=== PATIENT | female | born 1955 | race Caucasian/White ===

== ENCOUNTER → 2020-12-22 | Outpatient (CLI) | payer MEDICARE, OTHER ==
[~2020-12-22] MED LIST: CEPH500 PO; HYDACE10B PO; HYDPAM25 PO; MORP15ER PO; Macrobid 100 M100 MG PO; OXYACE5T PO; PARO20 PO; PAXIL40 MG PO; TIZANIDINE HCL4 MG PO; Triamcinolone A15 GM TOP
[2020-12-22 15:54] LABS: Appearance, Urine Clear (Clear); Bilirubin, Urine Neg (Neg); Blood, Urine 2+ (Neg); Color, Urine Yellow (P-Yellow); Glucose Qualitative, Urine Neg (Neg); Ketones, Urine Neg (Neg); Leukocyte Esterase, Urine 2+ (Neg); Nitrite, Urine Neg (Neg); Protein, Urine Neg (Neg); Urobilinogen, Urine NORM (Normal)
[2020-12-22 16:10] LABS: Bacteria Many /hpf; Red Blood Cells, Urine 0-2 /hpf (0-2); Squamous Epithelial Cells Few /hpf (Few); White Blood Cells, Urine 25-50 /hpf (0-5); Yeast/Fungi Urine Many /hpf
== END | disposition home or self-care (01) ==
LOC: LAB 15:00 → LAB SHORT 15:00 → LAB FUT 12-21 06:35
PROVIDERS: Urology
DX: N39.0 Urinary tract infection, site not specified (principal)
CPT/HCPCS: 81001; 87077; 87086; 87186

== ENCOUNTER → 2021-01-30 | Outpatient (CLI) | payer MEDICARE | END | disposition home or self-care (01) | LOC: LAB 13:00 → LAB SHORT 13:00 | DX: N39.0 Urinary tract infection, site not specified (principal) | CPT/HCPCS: 87077; 87086; 87186 ==

== ENCOUNTER 2021-03-27 16:29 | Emergency (ER) | payer MEDICARE ==
[~2021-03-27] VITALS: Ht 160 cm; Wt 54.4 kg
[2021-03-27 17:06] LABS: Source, Urine Clean Catch
[2021-03-27 17:10] LABS: Appearance, Urine Hazy (Clear); Bilirubin, Urine Neg (Neg); Blood, Urine 2+ (Neg); Glucose Qualitative, Urine Neg (Neg); Ketones, Urine Neg (Neg); Leukocyte Esterase, Urine 3+ (Neg); Nitrite, Urine Neg (Neg); Protein, Urine Neg (Neg); Specific Gravity, Urine 1.015 (1.003-1.022); Urobilinogen, Urine NORM (Normal)
[2021-03-27 17:15] LABS: Color, Urine Pale Yellow (P-Yellow)
[2021-03-27 17:16] LABS: White Blood Cells, Urine 50-100 /hpf (0-5)
[2021-03-27 17:17] LABS: Bacteria Many /hpf; Squamous Epithelial Cells Few /hpf (Few); Yeast/Fungi Urine Many /hpf
[2021-03-27] MEDS ORDERED: Macrobid 100 M100 MG PO (18:08)
== END 2021-03-27 18:23 | disposition home or self-care (01) ==
LOC: ER 16:29
PROVIDERS: Physician Assistant
DX: N30.90 Cystitis, unspecified without hematuria (principal); I10 Essential (primary) hypertension; F17.200 Nicotine dependence, unspecified, uncomplicated; Z88.2 Allergy status to sulfonamides; Z79.899 Other long term (current) drug therapy; Z88.8 Allergy status to other drugs, medicaments and biological substances
CPT/HCPCS: 81001; 87086; 99284; A9270

== ENCOUNTER → 2021-05-02 | Outpatient (CLI) | payer MEDICARE | END | disposition home or self-care (01) | LOC: LAB 09:45 → LAB SHORT 09:45 | DX: R30.0 Dysuria (principal) | CPT/HCPCS: 87086 ==

== ENCOUNTER 2021-06-10 06:27 | Day surgery (SDC) | payer MEDICARE ==
[~2021-06-10] VITALS: Ht 160 cm; Wt 55.0 kg
[~2021-06-10 06:27] MED LIST changes: +TIZA4 PO; -TIZANIDINE HCL4 MG PO
[2021-06-10] MEDS ORDERED: TOPROL XL200 MG PO (07:03)
[2021-06-10] MEDS ORDERED: AMLO10 PO (07:03)
--- NOTE | 2021-06-10 13:37 | NUR ---
PT DRESSED, IV DC'D INTACT, DR HALL IN REVIEWING PLAN OF CARE W PT, PT DC'D BY WC BY THIS RN, SISTER DRIVING PT HOME, BAG DRAINING RED/YELLOW, PLACED WAIST STRAP ON PT FOR BAG RETENTION AND SENT SECOND BAG HOME W PT
[2021-07-30] MEDS ORDERED: Norco 10-325 T1 EACH PO (07:29)
== END 2021-06-10 13:41 | disposition home or self-care (01) ==
LOC: MHTC 06:27
DX: N13.1 Hydronephrosis with ureteral stricture, not elsewhere classified (principal); I10 Essential (primary) hypertension; F17.210 Nicotine dependence, cigarettes, uncomplicated
CPT/HCPCS: 50432; 76937; 99152; 99153; C1729; C1769; C1887; J2250; J3010; J7030; J7040; Q9967

== ENCOUNTER 2021-06-30 10:27 | Emergency (ER) | payer MEDICARE ==
[~2021-06-30] VITALS: Ht 157.5 cm; Wt 45.4 kg
[~2021-06-30 10:27] MED LIST changes: +AMLO10 PO; -TIZA4 PO; +TIZANIDINE HCL4 MG PO; +TOPROL XL200 MG PO
[2021-06-30] MEDS ORDERED: RAMELTEON8 MG PO (10:56)
== END 2021-06-30 11:45 | disposition home or self-care (01) ==
LOC: ER 10:27
DX: S00.12XA Contusion of left eyelid and periocular area, initial encounter (principal); I10 Essential (primary) hypertension; F17.200 Nicotine dependence, unspecified, uncomplicated; Z79.899 Other long term (current) drug therapy; Z88.2 Allergy status to sulfonamides; Z88.8 Allergy status to other drugs, medicaments and biological substances; W19.XXXA Unspecified fall, initial encounter
CPT/HCPCS: 70450; 72125; 99283-25

== ENCOUNTER → 2021-10-03 | Outpatient (CLI) | payer MEDICARE ==
[~2021-10-03] MED LIST changes: +Norco 10-325 T1 EACH PO; +RAMELTEON8 MG PO; +TIZA4 PO; -TIZANIDINE HCL4 MG PO
== END | disposition home or self-care (01) ==
LOC: LAB 12:00 → LAB SHORT 12:00
DX: R30.0 Dysuria (principal)
CPT/HCPCS: 87077; 87086; 87147; 87186

== ENCOUNTER → 2021-11-11 | Outpatient (CLI) | payer MEDICARE ==
[2021-11-11 15:10] LABS: Source, Urine Clean Catch
[2021-11-11 16:05] LABS: Appearance, Urine Hazy (Clear); Bilirubin, Urine Neg (Neg); Blood, Urine 4+ (Neg); Glucose Qualitative, Urine Neg (Neg); Ketones, Urine Neg (Neg); Leukocyte Esterase, Urine 3+ (Neg); Nitrite, Urine Pos (Neg); Protein, Urine 1+ (Neg); Urobilinogen, Urine NORM (Normal)
[2021-11-11 16:22] LABS: Color, Urine Pale Yellow (P-Yellow)
[2021-11-11 16:23] LABS: Bacteria Many /hpf; Hyaline Casts 0-2 /lpf (0-2); Squamous Epithelial Cells Many /hpf (Few); White Blood Cells, Urine 25-50 /hpf (0-5)
== END | disposition home or self-care (01) ==
LOC: LAB 15:09 → LAB SHORT 15:09 → LAB FUT 11-09 08:50
PROVIDERS: Urology
DX: N39.0 Urinary tract infection, site not specified (principal)
CPT/HCPCS: 81001; 87077; 87086; 87186

== ENCOUNTER 2022-10-06 23:28 | Emergency (ER) | payer MEDICARE ==
[~2022-10-06] VITALS: Ht 160 cm; Wt 48.5 kg
[2022-10-06 23:53] LABS: BASOPHILS ABSOLUTE AUTO 0.04 K/mm3 (0.00-0.23); BASOPHILS PERCENT AUTO 1 % (0-2); EOSINOPHILS ABSOLUTE AUTO 0.05 K/mm3 (0.00-0.68); EOSINOPHILS PERCENT AUTO 1 % (0-6); Hemoglobin 10.1 g/dL (11.5-16.0); IMMATURE GRAN ABSOLUTE AUTO 0.01 K/mm3 (0.00-0.10); IMMATURE GRAN PERCENT AUTO 0 % (0-1); LYMPHOCYTES PERCENT AUTO 47 % (21-46); MONOCYTES ABSOLUTE AUTO 0.47 K/mm3 (0.16-1.47); MONOCYTES PERCENT AUTO 7 % (4-13); Mean Corpuscular HGB 32.4 pg (26.0-34.0); Mean Corpuscular HGB Conc 34.8 g/dL (31.5-36.5); Mean Corpuscular Volume 93 fL (80-100); Mean Platelet Volume 8.3 fL (9.1-12.4); NEUTROPHILS ABSOLUTE AUTO 2.88 K/mm3 (1.96-9.15); NEUTROPHILS PERCENT AUTO 45 % (41-73); Platelet Count 194 K/mm3 (150-400); RDW Coefficient Variation 14.4 % (11.7-14.2); RDW Standard Deviation 48.4 fL (35.1-46.3); Red Blood Cell Count 3.12 M/mm3 (3.80-5.20); White Blood Cell Count 6.45 K/mm3 (4.00-11.30)
[2022-10-07 00:11] LABS: Magnesium, Blood 2.1 mg/dL (1.6-2.4)
[2022-10-07 00:14] LABS: Albumin, Blood 3.3 g/dL (3.4-5.0); Albumin/Globulin Ratio 1.1 (0.8-1.8); Bilirubin, Total 0.1 mg/dL (0.1-1.0); Bun/Creatinine Ratio 11.2 (12.0-20.0); Calcium, Blood 8.7 mg/dL (8.5-10.1); Creatinine, Blood 1.61 mg/dL (0.40-1.00); Globulin, Blood 2.9 g/dL (2.2-4.0); Thyroid Stimulating Hormone 1.6 uIU/mL (0.360-4.800); Total Protein, Blood 6.2 g/dL (6.4-8.2)
[2022-10-07 03:27] LABS: Source, Urine Clean Catch
[2022-10-07 03:29] LABS: Appearance, Urine Hazy (Clear); Bilirubin, Urine Neg (Neg); Blood, Urine 2+ (Neg); Color, Urine Yellow (P-Yellow); Glucose Qualitative, Urine Neg (Neg); Ketones, Urine Neg (Neg); Leukocyte Esterase, Urine 3+ (Neg); Nitrite, Urine Pos (Neg); Protein, Urine 2+ (Neg); Urobilinogen, Urine NORM (Normal)
[2022-10-07 03:35] LABS: Bacteria Many /hpf; Red Blood Cells, Urine 0-2 /hpf (0-2); Squamous Epithelial Cells Few /hpf (Few); White Blood Cells, Urine TNTC /hpf (0-5)
[2022-10-07] MEDS ORDERED: NITR100CA PO (04:06)
[2022-10-07 04:20] VITALS: BP 169/81
== END 2022-10-07 04:28 | disposition home or self-care (01) ==
LOC: ER 23:28
PROVIDERS: Student in an Organized Health Care Education/Training Program
DX: N39.0 Urinary tract infection, site not specified (principal); R53.1 Weakness; N17.9 Acute kidney failure, unspecified; I10 Essential (primary) hypertension; M79.7 Fibromyalgia; F17.210 Nicotine dependence, cigarettes, uncomplicated; E87.1 Hypo-osmolality and hyponatremia; Z88.2 Allergy status to sulfonamides; Z88.8 Allergy status to other drugs, medicaments and biological substances; Z88.1 Allergy status to other antibiotic agents; Z79.899 Other long term (current) drug therapy
CPT/HCPCS: 71046; 80053; 81001; 83735; 84443; 84484; 85025; 87077; 87086; 87186; 93005; 93010; 96360; 99285-25; A9270; J7030

== ENCOUNTER 2022-11-24 11:11 | Inpatient (IN) | payer MEDICARE ==
[~2022-11-24] VITALS: Ht 160 cm; Wt 44.0 kg
[~2022-11-24 11:11] MED LIST changes: +HYDR1TAB94 PO; +METO25ER PO; +NITR100CA PO; -Norco 10-325 T1 EACH PO; -TOPROL XL200 MG PO
[2022-11-24] MEDS ORDERED: TRAZ50 PO (11:44)
[2022-11-24 11:52] LABS: BASOPHILS ABSOLUTE AUTO 0.03 K/mm3 (0.00-0.23); BASOPHILS PERCENT AUTO 1 % (0-2); EOSINOPHILS ABSOLUTE AUTO 0.01 K/mm3 (0.00-0.68); EOSINOPHILS PERCENT AUTO 0 % (0-6); Hematocrit 35.7 % (33.0-51.0); Hemoglobin 12.6 g/dL (11.5-16.0); IMMATURE GRAN ABSOLUTE AUTO 0.01 K/mm3 (0.00-0.10); IMMATURE GRAN PERCENT AUTO 0 % (0-1); LYMPHOCYTES PERCENT AUTO 26 % (21-46); MONOCYTES PERCENT AUTO 7 % (4-13); Mean Corpuscular HGB 32.9 pg (26.0-34.0); Mean Corpuscular HGB Conc 35.3 g/dL (31.5-36.5); Mean Corpuscular Volume 93 fL (80-100); Mean Platelet Volume 8.1 fL (9.1-12.4); NEUTROPHILS ABSOLUTE AUTO 3.88 K/mm3 (1.96-9.15); NEUTROPHILS PERCENT AUTO 67 % (41-73); Platelet Count 220 K/mm3 (150-400); RDW Coefficient Variation 13.9 % (11.7-14.2); RDW Standard Deviation 47.6 fL (35.1-46.3); Red Blood Cell Count 3.83 M/mm3 (3.80-5.20); White Blood Cell Count 5.83 K/mm3 (4.00-11.30)
[2022-11-24 12:12] LABS: Albumin, Blood 3.7 g/dL (3.4-5.0); Albumin/Globulin Ratio 1.1 (0.8-1.8); Bilirubin, Total 0.3 mg/dL (0.1-1.0); Calcium, Blood 9.2 mg/dL (8.5-10.1); Creatinine, Blood 1.36 mg/dL (0.40-1.00); Globulin, Blood 3.4 g/dL (2.2-4.0); Potassium, Blood 4.1 mmol/L (3.5-5.5); Total Protein, Blood 7.1 g/dL (6.4-8.2)
[2022-11-24 12:21] LABS: International Normalized Ratio 1.06; Prothrombin Time Results 11.1 Sec (9.7-11.5)
[2022-11-24 14:53] VITALS: BP 161/109
--- NOTE | 2022-11-24 17:17 | NUR ---
BEDSIDE SWALLOW EVAL: ABLE TO DANGLE AT BEDSIDE WITHOUT ASSISTANCE. PATIENT DRANK 150 ML WATER SAMPLE WHILE THIS AUTHOR WAS EDUCATING HER ABOUT THE PROCESS, ALL AT ONCE. NO COUGHING, CHOKING, OR WET SOUNDING VOICE NOTED. IS ABLE TO SUCK ON ICE CHIPS WITHOUT DIFFICULTY. AWAITING DR. GARCIA FOR ADMIT ORDERS. WILL ENDORSE TO PROVIDER.
--- NOTE | 2022-11-24 18:22 | NUR ---
SHIFT SUMMARY: ASSUMED CARE OF PATIENT UPON HER ARRIVAL VIA W/C FROM ED AT 1445. TIFFANY IS A&O X 4, PLEASANT AND COOPERATIVE. SLIGHT L FACIAL DROOP, TONGUE MIDLINE, SLIGHT L HAND AND LLE WEAKNESS (4/5). GCS 15. DENIES PAIN. HYPERTENSIVE 200'S/80-100'S; DR. GARCIA MADE AWARE, MEDICATION ORDERS PENDING. PASSED BEDSIDE SWALLOW EVAL, GAVE HALF TURKEY SANDWICH AND ROOT BEER PER PT REQUEST. ON ROOM AIR, IS CEDS; REQUESTED NICOTINE PATCH FROM PROVIDER. PT INFORMED ABOUT NON-SMOKING CAMPUS AND VERBALIZED UNDERSTANDING, HAS NO INCENDIARY DEVICES IN HER POSSESSION. EDUCATED PT ABOUT FALL PRECAUTIONS, TO CALL STAFF TO GET OOB. SHE IS HOPING TO GO HOME TOMORROW.
[2022-11-24 19:23] LABS: Source, Urine Clean Catch
[2022-11-24 19:26] LABS: Appearance, Urine Clear (Clear); Bilirubin, Urine Neg (Neg); Blood, Urine 2+ (Neg); Color, Urine Yellow (P-Yellow); Glucose Qualitative, Urine Neg (Neg); Ketones, Urine Neg (Neg); Leukocyte Esterase, Urine 1+ (Neg); Nitrite, Urine Neg (Neg); Protein, Urine 2+ (Neg); Specific Gravity, Urine 1.005 (1.003-1.022); Urobilinogen, Urine NORM (Normal)
[2022-11-24 19:33] LABS: Bacteria Few /hpf; Squamous Epithelial Cells Few /hpf (Few)
[2022-11-24 19:54] VITALS: BP 139/91
[2022-11-24] MEDS ORDERED: TRIM100 PO (20:08)
[2022-11-25 04:11] VITALS: BP 101/80
--- NOTE | 2022-11-25 04:54 | NUR ---
SHIFT SUMMARY PATIENT A/Ox4, DENIES PAIN NOR DISCOMFORT. CLEAR SPEECH, ABLE TO ARTICULATE NEEDS. CONTINUES TO PRESENT WITH LEFT SIDED WEAKNESS AND SLIGHT LEFT FACIAL DROOP. NO CHANGES IN NEURO CHECKS. NO ACUTE CHANGES NOTED OVERNIGHT. MRI SCREENING COMPLETE AND FAXED. PATIENT HAS BEEN NPO SINCE MIDNIGHT FOR RENAL DUPLEX. 20G PIV TO LEFT AC, PATENT, FLUSHES WELL. BED LOCKED, IN LOW POSITION, CALL LIGHT WITHIN REACH.
[2022-11-25 07:48] VITALS: BP 110/83
[2022-11-25 09:50] LABS: BASOPHILS ABSOLUTE AUTO 0.03 K/mm3 (0.00-0.23); BASOPHILS PERCENT AUTO 1 % (0-2); EOSINOPHILS ABSOLUTE AUTO 0.02 K/mm3 (0.00-0.68); EOSINOPHILS PERCENT AUTO 0 % (0-6); Hematocrit 35.1 % (33.0-51.0); Hemoglobin 12.4 g/dL (11.5-16.0); IMMATURE GRAN ABSOLUTE AUTO 0.02 K/mm3 (0.00-0.10); IMMATURE GRAN PERCENT AUTO 0 % (0-1); LYMPHOCYTES ABSOLUTE AUTO 2.23 K/mm3 (0.84-5.20); LYMPHOCYTES PERCENT AUTO 35 % (21-46); MONOCYTES ABSOLUTE AUTO 0.47 K/mm3 (0.16-1.47); MONOCYTES PERCENT AUTO 7 % (4-13); Mean Corpuscular HGB 32.4 pg (26.0-34.0); Mean Corpuscular HGB Conc 35.3 g/dL (31.5-36.5); Mean Corpuscular Volume 92 fL (80-100); Mean Platelet Volume 8.3 fL (9.1-12.4); NEUTROPHILS ABSOLUTE AUTO 3.54 K/mm3 (1.96-9.15); NEUTROPHILS PERCENT AUTO 56 % (41-73); Platelet Count 219 K/mm3 (150-400); RDW Standard Deviation 47.4 fL (35.1-46.3); Red Blood Cell Count 3.83 M/mm3 (3.80-5.20); White Blood Cell Count 6.31 K/mm3 (4.00-11.30)
[2022-11-25 10:09] LABS: Albumin, Blood 3.8 g/dL (3.4-5.0); Albumin/Globulin Ratio 1.1 (0.8-1.8); Bilirubin, Total 0.4 mg/dL (0.1-1.0); Bun/Creatinine Ratio 13.4 (12.0-20.0); Calcium, Blood 9.8 mg/dL (8.5-10.1); Creatinine, Blood 1.42 mg/dL (0.40-1.00); Globulin, Blood 3.6 g/dL (2.2-4.0); Potassium, Blood 4.3 mmol/L (3.5-5.5); Total Protein, Blood 7.4 g/dL (6.4-8.2)
[2022-11-25 13:20] LABS: SARS-Cov-2 (COVID-19) PCR, MMC NEGATIVE (NEGATIVE)
[2022-11-25 14:53] VITALS: BP 182/75
--- NOTE | 2022-11-25 16:34 | NUR ---
DAYSHIFT SUMMARY Patient alert & oriented x4. MRI cancelled d/t implanted neuro stimulator. Repeat Head CTA. stated no changes to CT, continue aspirin, and f/u outpatient neurology. Therapy recommeding outpatient PT. Liver enzymes elevated, will montior over night, and evlaute in the morning, possible DC home tomorrow. No telemetry events this shift, vitals stable. Will continue plan of care.
[2022-11-25 20:01] LABS: U Amphetamine Screen Not Detected; U Barbituate Screen Not Detected; U Benzodiazapine Screen Not Detected; U Buprenorphine Screen Not Detected; U Cannabinoids Screen Not Detected; U Cocaine Screen Not Detected; U Methadone Screen Not Detected; U Methamphetamine Screen Not Detected; U Opiates Screen DETECTED; U Oxycodone Screen Not Detected; U Phencyclidine Screen Not Detected; U Propoxyphene Screen Not Detected
[2022-11-25 20:08] VITALS: BP 167/82
[2022-11-26] VITALS (8 sets, daily range): BP systolic 125–199; BP diastolic 70–94
[2022-11-26 04:49] LABS: BASOPHILS ABSOLUTE AUTO 0.04 K/mm3 (0.00-0.23); BASOPHILS PERCENT AUTO 1 % (0-2); EOSINOPHILS PERCENT AUTO 1 % (0-6); Hematocrit 32.7 % (33.0-51.0); Hemoglobin 11.5 g/dL (11.5-16.0); IMMATURE GRAN ABSOLUTE AUTO 0.02 K/mm3 (0.00-0.10); IMMATURE GRAN PERCENT AUTO 0 % (0-1); LYMPHOCYTES PERCENT AUTO 40 % (21-46); MONOCYTES ABSOLUTE AUTO 0.53 K/mm3 (0.16-1.47); MONOCYTES PERCENT AUTO 7 % (4-13); Mean Corpuscular HGB 32.9 pg (26.0-34.0); Mean Corpuscular HGB Conc 35.2 g/dL (31.5-36.5); Mean Corpuscular Volume 93 fL (80-100); Mean Platelet Volume 8.4 fL (9.1-12.4); NEUTROPHILS ABSOLUTE AUTO 3.98 K/mm3 (1.96-9.15); NEUTROPHILS PERCENT AUTO 51 % (41-73); Platelet Count 216 K/mm3 (150-400); RDW Coefficient Variation 14.2 % (11.7-14.2); RDW Standard Deviation 48.2 fL (35.1-46.3); White Blood Cell Count 7.77 K/mm3 (4.00-11.30)
[2022-11-26 05:10] LABS: Albumin, Blood 3.5 g/dL (3.4-5.0); Albumin/Globulin Ratio 1.1 (0.8-1.8); Bilirubin, Total 0.2 mg/dL (0.1-1.0); Bun/Creatinine Ratio 16.7 (12.0-20.0); Calcium, Blood 9.5 mg/dL (8.5-10.1); Creatinine, Blood 1.56 mg/dL (0.40-1.00); Globulin, Blood 3.2 g/dL (2.2-4.0); Potassium, Blood 4.4 mmol/L (3.5-5.5); Total Protein, Blood 6.7 g/dL (6.4-8.2)
--- NOTE | 2022-11-26 05:13 | NUR ---
SHIFT SUMMARY PATIENT A/Ox4, DENIES PAIN NOR DISCOMFORT. CONTINUES TO PRESENT WITH LEFT SIDED WEAKNESS AND SLIGHT LEFT FACIAL DROOP. NO CHANGES IN NEURO CHECKS. NO ACUTE CHANGES NOTED OVERNIGHT. BALANCE HAS IMPROVED, SBA ONLY, ABLE TO AMBULATE TO BATHROOM AND BACK TO BED ON OWN. BED LOCKED AND IN LOW POSITION, CALL LIGHT WITHIN REACH.
--- NOTE | 2022-11-26 16:46 | NUR ---
DAYSHIFT SUMMARY Patient alert & oriented x4. Telemetry in place, NSR no cardiac events this shift. BP continues to run high, new medications started today. MD wants to keep patient over night and monitor BP. Patient worked with therpay, doing well steady gait, ambulates w/ supervison for safety.
[2022-11-27 02:54] VITALS: BP 130/83
--- NOTE | 2022-11-27 04:11 | NUR ---
SHIFT SUMMARY PATIENT ALERT AND ORIENTED. DENIES PAIN, NAUSEA, AND SHORTNESS OF BREATH. LEFT SIDED WEAKNESS, UP SBA TO BR. GOOD APPETITE. SLEPT WELL THIS SHIFT. PLEASANT AND COOPERATIVE WITH CARE.
[2022-11-27 05:07] LABS: BASOPHILS ABSOLUTE AUTO 0.03 K/mm3 (0.00-0.23); BASOPHILS PERCENT AUTO 0 % (0-2); EOSINOPHILS ABSOLUTE AUTO 0.08 K/mm3 (0.00-0.68); EOSINOPHILS PERCENT AUTO 1 % (0-6); Hematocrit 32.7 % (33.0-51.0); Hemoglobin 11.4 g/dL (11.5-16.0); IMMATURE GRAN ABSOLUTE AUTO 0.02 K/mm3 (0.00-0.10); IMMATURE GRAN PERCENT AUTO 0 % (0-1); LYMPHOCYTES ABSOLUTE AUTO 1.81 K/mm3 (0.84-5.20); LYMPHOCYTES PERCENT AUTO 25 % (21-46); MONOCYTES PERCENT AUTO 7 % (4-13); Mean Corpuscular HGB 32.4 pg (26.0-34.0); Mean Corpuscular HGB Conc 34.9 g/dL (31.5-36.5); Mean Corpuscular Volume 93 fL (80-100); Mean Platelet Volume 8.7 fL (9.1-12.4); NEUTROPHILS ABSOLUTE AUTO 4.84 K/mm3 (1.96-9.15); NEUTROPHILS PERCENT AUTO 66 % (41-73); Platelet Count 213 K/mm3 (150-400); RDW Coefficient Variation 13.7 % (11.7-14.2); RDW Standard Deviation 46.9 fL (35.1-46.3); Red Blood Cell Count 3.52 M/mm3 (3.80-5.20); White Blood Cell Count 7.28 K/mm3 (4.00-11.30)
[2022-11-27 05:07] LABS: HBSAG SCREEN Negative (Negative); HCV AB Non Reactive (Non Reactive); HEP A AB, IGM Negative (Negative); HEP B CORE AB, IGM Negative (Negative)
[2022-11-27 05:30] LABS: Alanine Aminotransfer (ALT/SGP 132 U/L (12-78); Albumin, Blood 3.3 g/dL (3.4-5.0); Albumin/Globulin Ratio 1.1 (0.8-1.8); Alk Phos 120 U/L (50-136); Anion Gap 6 mmol/L (6-16); Aspartate Aminotrans (AST/SGOT 49 U/L (12-37); Bilirubin, Total 0.4 mg/dL (0.1-1.0); Blood Urea Nitrogen 23 mg/dL (8-24); Bun/Creatinine Ratio 16.5 (12.0-20.0); CHOL/HDL RATIO 2.1; CO2, Blood 23 mmol/L (21-32); Calcium, Blood 9.6 mg/dL (8.5-10.1); Chloride, Blood 102 mmol/L (98-108); Cholesterol 200 mg/dL (50-200); Creatinine, Blood 1.39 mg/dL (0.40-1.00); Globulin, Blood 3.1 g/dL (2.2-4.0); Glomerular Filtration Rate 41 (60-); Glucose, Blood 98 mg/dL (70-99); HDL Cholesterol 95 mg/dL (>39); LDL/HDL RATIO 0.9; Low Density Lipoprotein Chol 89 mg/dL (0-110); Potassium, Blood 4.2 mmol/L (3.5-5.5); Sodium, Blood 131 mmol/L (136-145); Total Protein, Blood 6.4 g/dL (6.4-8.2); Triglycerides 82 mg/dL (30-160); Very Low Density Lipoprot Chol 16 mg/dL (6-32)
[2022-11-27 07:25] VITALS: BP 167/75
--- NOTE | 2022-11-27 13:22 | NUR ---
JENNIFER VISITED, STAND BY ASSIST FOR SMALL WALK OUTSIDE OF THE ROOM, CALL LIGHT WITH IN REACH, A&OX4
--- NOTE | 2022-11-27 16:08 | NUR ---
NO ACUTE CHANGES, [facility] VISITED, PATIENT AMBULATED WITH GAIT BELT IN THE HALLS FOR A SHORT DISTANCE, ALERT AND ORIENTED 4, LEFTSIDE WEAKNESS AND LEFT SIDED FACIAL DROOP, NO CHANGES IN TREATMENT, NO CHANGES ON TELEMETRY. USES CALL LIGHT APPROPRIATLY, WILL RELAY TO PM RN
[2022-11-27 16:12] VITALS: BP 123/82
[2022-11-27 20:21] VITALS: BP 122/82
[2022-11-28 03:21] VITALS: BP 100/67
--- NOTE | 2022-11-28 04:58 | NUR ---
SHIFT SUMMARY PATIENT DENIES PAIN, NAUSEA, AND SHORTNESS OF BREATH. PATIENT UP SBA TO BR. SLEEPING MOST OF SHIFT. DENIES ANY NEEDS. PLEASANT AND COOPERATIVE WITH CARE.
[2022-11-28 05:32] LABS: BASOPHILS ABSOLUTE AUTO 0.04 K/mm3 (0.00-0.23); BASOPHILS PERCENT AUTO 1 % (0-2); EOSINOPHILS ABSOLUTE AUTO 0.08 K/mm3 (0.00-0.68); EOSINOPHILS PERCENT AUTO 1 % (0-6); Hematocrit 31.3 % (33.0-51.0); Hemoglobin 10.8 g/dL (11.5-16.0); IMMATURE GRAN ABSOLUTE AUTO 0.03 K/mm3 (0.00-0.10); IMMATURE GRAN PERCENT AUTO 0 % (0-1); LYMPHOCYTES ABSOLUTE AUTO 2.09 K/mm3 (0.84-5.20); LYMPHOCYTES PERCENT AUTO 28 % (21-46); MONOCYTES ABSOLUTE AUTO 0.57 K/mm3 (0.16-1.47); MONOCYTES PERCENT AUTO 8 % (4-13); Mean Corpuscular HGB 32.4 pg (26.0-34.0); Mean Corpuscular HGB Conc 34.5 g/dL (31.5-36.5); Mean Corpuscular Volume 94 fL (80-100); Mean Platelet Volume 8.9 fL (9.1-12.4); NEUTROPHILS ABSOLUTE AUTO 4.79 K/mm3 (1.96-9.15); NEUTROPHILS PERCENT AUTO 63 % (41-73); Platelet Count 211 K/mm3 (150-400); RDW Coefficient Variation 13.9 % (11.7-14.2); RDW Standard Deviation 47.8 fL (35.1-46.3); Red Blood Cell Count 3.33 M/mm3 (3.80-5.20)
[2022-11-28 06:05] LABS: Albumin, Blood 3.2 g/dL (3.4-5.0); Bilirubin, Total 0.3 mg/dL (0.1-1.0); Bun/Creatinine Ratio 19.5 (12.0-20.0); Calcium, Blood 9.3 mg/dL (8.5-10.1); Creatinine, Blood 1.33 mg/dL (0.40-1.00); Globulin, Blood 3.3 g/dL (2.2-4.0); Potassium, Blood 4.4 mmol/L (3.5-5.5); Total Protein, Blood 6.5 g/dL (6.4-8.2)
[2022-11-28 07:13] VITALS: BP 128/82
[2022-11-28] MEDS ORDERED: Amlodipine Bes2.5 MG PO (10:17)
[2022-11-28] MEDS ORDERED: CLOP75 PO (10:17)
[2022-11-28] MEDS ORDERED: MORP15ER PO (10:17)
--- NOTE | 2022-11-28 11:41 | NUR ---
DISCHARGE SUMMARY PT AxOx4. PLEASANT AND COOPERATIVE WITH CARE. PT DENIES PAIN THIS AM, DECLINING HER SCHEDULED PAIN MEDICATIONS. PT WORKED WITH THERAPY THIS AM, AMBULATING IN HALLS WITHOUT DIFFICULTY. PT IS DISCHARGING HOME TODAY WITH HER SISTER. PT WAS PROVIDED DC INSTRUCTIONS INCLUDING NEED TO MAKE FOLLOW UP APPOINTMENT WITH PCP, DC MED LIST AND TAKE HOME PATIENT EDUCATION RE: DIAGNOSIS AND NEW MEDICATIONS. PT AND HER SISTER VERBALIZE UNDERSTANDING AND WERE SAFELY ESCORTED OUT VIA WC.
== END 2022-11-28 11:11 | disposition home or self-care (01) | DRG 65 ==
LOC: ER 11:11 → MEDS 13:56 → ER 13:56 → MEDS 13:56 → ENPENDDIS 11-28 08:31 → MEDS 11-28 11:11
PROVIDERS: Emergency Medicine; ADMIT Family Medicine
DX: I63.9 Cerebral infarction, unspecified (principal); G81.94 Hemiplegia, unspecified affecting left nondominant side; M79.7 Fibromyalgia; R29.810 Facial weakness; M54.9 Dorsalgia, unspecified; R47.1 Dysarthria and anarthria; G89.4 Chronic pain syndrome; I12.9 Hypertensive chronic kidney disease with stage 1 through stage 4 chronic kidney disease, or unspecified chronic kidney disease; R74.01 Elevation of levels of liver transaminase levels; N18.30 Chronic kidney disease, stage 3 unspecified; K22.70 Barrett's esophagus without dysplasia; R91.1 Solitary pulmonary nodule; F17.210 Nicotine dependence, cigarettes, uncomplicated; Z85.41 Personal history of malignant neoplasm of cervix uteri; Z98.891 History of uterine scar from previous surgery; Z90.49 Acquired absence of other specified parts of digestive tract; Z90.710 Acquired absence of both cervix and uterus; Z98.890 Other specified postprocedural states; Z88.2 Allergy status to sulfonamides; Z88.1 Allergy status to other antibiotic agents; Z88.8 Allergy status to other drugs, medicaments and biological substances; Z79.891 Long term (current) use of opiate analgesic; Z79.899 Other long term (current) drug therapy
CPT/HCPCS: 36415; 70450; 70496; 70498; 71046; 71250; 76705; 80053; 80061; 80074; 81001; 85025; 85610; 85730; 87086; 93005; 93010; 93975; 96372; 96374; 96374-59; 97110; 97112; 97116; 97162; 97166; 99285-25; A9270; G0378; J0360; J1650; Q9967; U0002

== ENCOUNTER 2022-12-01 20:09 | Emergency (ER) | payer MEDICARE ==
[~2022-12-01] VITALS: Ht 157.5 cm; Wt 63.5 kg
[~2022-12-01 20:09] MED LIST changes: +Amlodipine Bes2.5 MG PO; +CLOP75 PO; +TRAZ50 PO; +TRIM100 PO
[2022-12-01 20:33] VITALS: BP 186/102
== END 2022-12-01 21:29 | disposition home or self-care (01) ==
LOC: ER 20:09
DX: I10 Essential (primary) hypertension (principal); Z88.8 Allergy status to other drugs, medicaments and biological substances; Z88.2 Allergy status to sulfonamides; Z88.1 Allergy status to other antibiotic agents; Z79.899 Other long term (current) drug therapy; F17.210 Nicotine dependence, cigarettes, uncomplicated
CPT/HCPCS: 99283

== ENCOUNTER → 2022-12-05 | Outpatient (CLI) | payer MEDICARE ==
[~2022-12-05] MED LIST changes: +ASPI81CH PO; +LOSARTAN POTASS25 M2 PO; +NICODERM CQ1 EA25 TD; +VITAMIN D5000 UNIT PO
== END | disposition home or self-care (01) ==
LOC: LAB SHORT 17:49 → LAB 17:49
DX: R30.0 Dysuria (principal)
CPT/HCPCS: 87077; 87086; 87186

== ENCOUNTER 2022-12-13 19:34 | Emergency (ER) | payer MEDICARE ==
[~2022-12-13] VITALS: Ht 160 cm; Wt 46.3 kg
[~2022-12-13 19:34] MED LIST changes: -ASPI81CH PO; -LOSARTAN POTASS25 M2 PO; -NICODERM CQ1 EA25 TD; -VITAMIN D5000 UNIT PO
[2022-12-13 20:49] VITALS: BP 167/86
[2022-12-13] MEDS ORDERED: ASPI81CH PO (21:02)
[2022-12-13] MEDS ORDERED: LOSARTAN POTASS25 M2 PO (21:02)
[2022-12-13] MEDS ORDERED: VITAMIN D5000 UNIT PO (21:02)
[2022-12-13] MEDS ORDERED: NICODERM CQ1 EA25 TD (21:03)
== END 2022-12-13 21:27 | disposition home or self-care (01) ==
LOC: ER 19:34
DX: I10 Essential (primary) hypertension (principal); F17.210 Nicotine dependence, cigarettes, uncomplicated; Z91.012 Allergy to eggs; Z88.2 Allergy status to sulfonamides; Z88.1 Allergy status to other antibiotic agents; Z88.8 Allergy status to other drugs, medicaments and biological substances; Z79.02 Long term (current) use of antithrombotics/antiplatelets; Z79.82 Long term (current) use of aspirin; Z79.899 Other long term (current) drug therapy; Z86.73 Personal history of transient ischemic attack (TIA), and cerebral infarction without residual deficits
CPT/HCPCS: 99281

== ENCOUNTER → 2023-01-31 | Outpatient (CLI) | payer MEDICARE ==
[~2023-01-31] MED LIST changes: +ASPI81CH PO; +LOSARTAN POTASS25 M2 PO; +NICODERM CQ1 EA25 TD; +VITAMIN D5000 UNIT PO
== END | disposition home or self-care (01) ==
LOC: LAB 12:00 → LAB SHORT 12:00
DX: R30.0 Dysuria (principal)
CPT/HCPCS: 87077; 87086; 87186

== ENCOUNTER → 2023-02-23 | Outpatient (CLI) | payer MEDICARE | END | disposition home or self-care (01) | LOC: LAB SHORT 17:19 → LAB 17:19 | DX: R30.0 Dysuria (principal) | CPT/HCPCS: 87077; 87086; 87186 ==

== ENCOUNTER → 2023-04-15 | Outpatient (CLI) | payer MEDICARE | END | disposition home or self-care (01) | LOC: LAB SHORT 14:04 → LAB 14:04 | DX: N39.0 Urinary tract infection, site not specified (principal) | CPT/HCPCS: 87077; 87086; 87186 ==

== ENCOUNTER 2023-09-12 15:09 | Emergency (ER) | payer MEDICARE ==
[~2023-09-12] VITALS: Ht 160 cm; Wt 53.5 kg
[2023-09-12 15:12] VITALS: BP 129/96
[2023-09-12 15:47] LABS: BASOPHILS ABSOLUTE AUTO 0.02 K/mm3 (0.00-0.23); BASOPHILS PERCENT AUTO 0 % (0-2); EOSINOPHILS ABSOLUTE AUTO 0.06 K/mm3 (0.00-0.68); EOSINOPHILS PERCENT AUTO 1 % (0-6); Hematocrit 34.5 % (33.0-51.0); Hemoglobin 11.1 g/dL (11.5-16.0); IMMATURE GRAN ABSOLUTE AUTO 0.02 K/mm3 (0.00-0.10); IMMATURE GRAN PERCENT AUTO 0 % (0-1); LYMPHOCYTES ABSOLUTE AUTO 1.87 K/mm3 (0.84-5.20); LYMPHOCYTES PERCENT AUTO 29 % (21-46); MONOCYTES ABSOLUTE AUTO 0.43 K/mm3 (0.16-1.47); MONOCYTES PERCENT AUTO 7 % (4-13); Mean Corpuscular HGB 30.3 pg (26.0-34.0); Mean Corpuscular HGB Conc 32.2 g/dL (31.5-36.5); Mean Corpuscular Volume 94 fL (80-100); Mean Platelet Volume 8.6 fL (9.1-12.4); NEUTROPHILS ABSOLUTE AUTO 4.01 K/mm3 (1.96-9.15); NEUTROPHILS PERCENT AUTO 63 % (41-73); Platelet Count 249 K/mm3 (150-400); RDW Coefficient Variation 14.8 % (11.7-14.2); Red Blood Cell Count 3.66 M/mm3 (3.80-5.20); White Blood Cell Count 6.41 K/mm3 (4.00-11.30)
[2023-09-12 16:11] LABS: Albumin, Blood 3.5 g/dL (3.4-5.0); Albumin/Globulin Ratio 0.8 (0.8-1.8); Bilirubin, Total 0.4 mg/dL (0.1-1.0); Bun/Creatinine Ratio 12.2 (12.0-20.0); Calcium, Blood 9.9 mg/dL (8.5-10.1); Creatinine, Blood 1.88 mg/dL (0.40-1.00); Globulin, Blood 4.3 g/dL (2.2-4.0); Potassium, Blood 3.8 mmol/L (3.5-5.5); Total Protein, Blood 7.8 g/dL (6.4-8.2)
== END 2023-09-12 18:19 | disposition left against medical advice (07) ==
LOC: ER 15:09
PROVIDERS: Physician Assistant
DX: R53.1 Weakness (principal); Z79.899 Other long term (current) drug therapy; Z79.82 Long term (current) use of aspirin; Z53.21 Procedure and treatment not carried out due to patient leaving prior to being seen by health care provider
CPT/HCPCS: 70450; 80053; 85025; 93005; 93010; 99283-25

== ENCOUNTER 2024-07-18 11:27 | Emergency (ER) | payer MEDICARE ==
[~2024-07-18] VITALS: Ht 160 cm; Wt 47.6 kg
[2024-07-18] MEDS ORDERED: HYDROcodone 5-APAP 325 TAB PO ONE (11:35)
[2024-07-18] MEDS ORDERED: Methyl Salicylate/Menth/Camph 57 GM TUBE TOP ONE (13:00)
[2024-07-18 13:02] LABS: Bun/Creatinine Ratio 17.5 (12.0-20.0); Calcium, Blood 9.4 mg/dL (8.5-10.1); Potassium, Blood 3.4 mmol/L (3.5-5.5)
[2024-07-18 13:04] LABS: BASOPHILS ABSOLUTE AUTO 0.04 K/mm3 (0.00-0.23); BASOPHILS PERCENT AUTO 0 % (0-2); EOSINOPHILS ABSOLUTE AUTO 0.01 K/mm3 (0.00-0.68); EOSINOPHILS PERCENT AUTO 0 % (0-6); Hematocrit 30.6 % (33.0-51.0); Hemoglobin 10.5 g/dL (11.5-16.0); IMMATURE GRAN ABSOLUTE AUTO 0.04 K/mm3 (0.00-0.10); IMMATURE GRAN PERCENT AUTO 0 % (0-1); LYMPHOCYTES ABSOLUTE AUTO 1.84 K/mm3 (0.84-5.20); LYMPHOCYTES PERCENT AUTO 19 % (21-46); MONOCYTES ABSOLUTE AUTO 0.48 K/mm3 (0.16-1.47); MONOCYTES PERCENT AUTO 5 % (4-13); Mean Corpuscular HGB 30.6 pg (26.0-34.0); Mean Corpuscular HGB Conc 34.3 g/dL (31.5-36.5); Mean Corpuscular Volume 89 fL (80-100); NEUTROPHILS ABSOLUTE AUTO 7.06 K/mm3 (1.96-9.15); NEUTROPHILS PERCENT AUTO 75 % (41-73); Platelet Count 278 K/mm3 (150-400); RDW Coefficient Variation 14.6 % (11.7-14.2); RDW Standard Deviation 47.5 fL (35.1-46.3); Red Blood Cell Count 3.43 M/mm3 (3.80-5.20); White Blood Cell Count 9.47 K/mm3 (4.00-11.30)
[2024-07-18] MEDS ORDERED: Voltaren100 GM TOP (13:04)
[2024-07-18 13:30] VITALS: BP 196/78
== END 2024-07-18 13:40 | disposition home or self-care (01) ==
LOC: ER 11:27
PROVIDERS: Emergency Medicine
DX: M79.671 Pain in right foot (principal); I10 Essential (primary) hypertension; F17.210 Nicotine dependence, cigarettes, uncomplicated; Z79.02 Long term (current) use of antithrombotics/antiplatelets; Z79.82 Long term (current) use of aspirin; Z79.899 Other long term (current) drug therapy; Z91.012 Allergy to eggs; Z88.2 Allergy status to sulfonamides; Z88.1 Allergy status to other antibiotic agents; Z88.8 Allergy status to other drugs, medicaments and biological substances
CPT/HCPCS: 73630; 80048; 85025; 93926; 99284-25; A9270

== ENCOUNTER 2024-07-20 15:29 | Emergency (ER) | payer MEDICARE ==
[~2024-07-20] VITALS: Ht 160 cm; Wt 46.7 kg
[~2024-07-20 15:29] MED LIST changes: +Voltaren100 GM TOP
[2024-07-20 15:38] VITALS: BP 177/96
[2024-07-20] MEDS ORDERED: Ketorolac Tromethamine 30mg Vial IM ONE (15:50)
== END 2024-07-20 16:09 | disposition home or self-care (01) ==
LOC: ER 15:29
DX: S93.401A Sprain of unspecified ligament of right ankle, initial encounter (principal); Z88.2 Allergy status to sulfonamides; Z88.8 Allergy status to other drugs, medicaments and biological substances; Z91.012 Allergy to eggs; Z79.899 Other long term (current) drug therapy; I10 Essential (primary) hypertension; F17.210 Nicotine dependence, cigarettes, uncomplicated; X58.XXXA Exposure to other specified factors, initial encounter
CPT/HCPCS: 96372; 99283-25; J1885

== ENCOUNTER 2024-12-18 13:26 | Emergency (ER) | payer MEDICARE ==
[~2024-12-18] VITALS: Ht 160 cm; Wt 50.4 kg
[2024-12-18 14:38] LABS: BASOPHILS ABSOLUTE AUTO 0.03 K/mm3 (0.00-0.23); BASOPHILS PERCENT AUTO 0 % (0-2); EOSINOPHILS ABSOLUTE AUTO 0.03 K/mm3 (0.00-0.68); EOSINOPHILS PERCENT AUTO 0 % (0-6); Hematocrit 36.9 % (33.0-51.0); Hemoglobin 12.4 g/dL (11.5-16.0); IMMATURE GRAN ABSOLUTE AUTO 0.01 K/mm3 (0.00-0.10); IMMATURE GRAN PERCENT AUTO 0 % (0-1); LYMPHOCYTES ABSOLUTE AUTO 1.94 K/mm3 (0.84-5.20); LYMPHOCYTES PERCENT AUTO 29 % (21-46); MONOCYTES ABSOLUTE AUTO 0.37 K/mm3 (0.16-1.47); MONOCYTES PERCENT AUTO 6 % (4-13); Mean Corpuscular HGB Conc 33.6 g/dL (31.5-36.5); Mean Corpuscular Volume 91 fL (80-100); NEUTROPHILS ABSOLUTE AUTO 4.33 K/mm3 (1.96-9.15); NEUTROPHILS PERCENT AUTO 65 % (41-73); NRBC ABSOLUTE 0.00 K/mm3 (0.00-0.02); NRBC Auto 0.0 /100 WBC (0.0-0.2); Platelet Count 207 K/mm3 (150-400); RDW Coefficient Variation 13.5 % (11.7-14.2); RDW Standard Deviation 45.6 fL (35.1-46.3)
[2024-12-18 14:58] LABS: Alanine Aminotransfer (ALT/SGP 15.0 U/L (12-78); Albumin, Blood 3.9 g/dL (3.4-5.0); Albumin/Globulin Ratio 1.0 (0.8-1.8); Anion Gap 8.0 mmol/L (3-11); Aspartate Aminotrans (AST/SGOT 18.0 U/L (12-37); Bilirubin, Total 0.3 mg/dL (0.1-1.0); Blood Urea Nitrogen 23.0 mg/dL (8-24); CO2, Blood 24.0 mmol/L (21-32); Calcium, Blood 10.1 mg/dL (8.5-10.1); Chloride, Blood 108.0 mmol/L (98-108); Creatinine, Blood 1.9 mg/dL (0.40-1.00); Globulin, Blood 3.8 g/dL (2.2-4.0); Glucose, Blood 92.0 mg/dL (70-99); Potassium, Blood 3.5 mmol/L (3.5-5.5); Sodium, Blood 136.0 mmol/L (136-145); Total Protein, Blood 7.7 g/dL (6.4-8.2)
[2024-12-18 17:30] VITALS: BP 171/95
== END 2024-12-18 17:35 | disposition home or self-care (01) ==
LOC: ER 13:26
PROVIDERS: Emergency Medicine
DX: I10 Essential (primary) hypertension (principal); Z88.1 Allergy status to other antibiotic agents; Z91.012 Allergy to eggs; Z88.2 Allergy status to sulfonamides; Z88.8 Allergy status to other drugs, medicaments and biological substances; Z79.899 Other long term (current) drug therapy; Z79.82 Long term (current) use of aspirin; Z87.891 Personal history of nicotine dependence
CPT/HCPCS: 80053; 83690; 84484; 85025; 93005; 93010; 99283-25

== ENCOUNTER 2025-01-07 11:34 | Inpatient (IN) | payer MEDICARE ==
[~2025-01-07] VITALS: Ht 160 cm; Wt 46.1 kg
[~2025-01-07 11:34] MED LIST changes: +AMLODIPINE BESY10 MG PO; +AMOCLA500 PO; +Acetaminophen650 M1 PO; -Amlodipine Bes2.5 MG PO; +IRBE150 PO; +LIPITOR80 MG PO; +VISBIOME 112.51 EACH PO
[2025-01-07] MEDS ORDERED: PAXIL PO (12:05)
[2025-01-07] MEDS ORDERED: Ondansetron HCl 2 MG / ML 2ML Vial IV ONE ×2 (12:10→15:20)
[2025-01-07] MEDS ORDERED: NS 1,000 ML IV SCH (12:10)
[2025-01-07 12:43] LABS: BASOPHILS ABSOLUTE AUTO 0.06 K/mm3 (0.00-0.23); BASOPHILS PERCENT AUTO 1 % (0-2); EOSINOPHILS ABSOLUTE AUTO 0.08 K/mm3 (0.00-0.68); EOSINOPHILS PERCENT AUTO 1 % (0-6); Hematocrit 39.0 % (33.0-51.0); Hemoglobin 13.0 g/dL (11.5-16.0); IMMATURE GRAN ABSOLUTE AUTO 0.07 K/mm3 (0.00-0.10); IMMATURE GRAN PERCENT AUTO 1 % (0-1); LYMPHOCYTES ABSOLUTE AUTO 2.24 K/mm3 (0.84-5.20); LYMPHOCYTES PERCENT AUTO 25 % (21-46); MONOCYTES ABSOLUTE AUTO 0.38 K/mm3 (0.16-1.47); MONOCYTES PERCENT AUTO 4 % (4-13); Mean Corpuscular HGB Conc 33.3 g/dL (31.5-36.5); Mean Corpuscular Volume 90 fL (80-100); NEUTROPHILS ABSOLUTE AUTO 6.18 K/mm3 (1.96-9.15); NEUTROPHILS PERCENT AUTO 69 % (41-73); NRBC ABSOLUTE 0.00 K/mm3 (0.00-0.02); NRBC Auto 0.0 /100 WBC (0.0-0.2); RDW Coefficient Variation 14.0 % (11.7-14.2); RDW Standard Deviation 46.9 fL (35.1-46.3)
[2025-01-07 13:03] LABS: Magnesium, Blood 1.8 mg/dL (1.6-2.4)
[2025-01-07 13:04] LABS: Alanine Aminotransfer (ALT/SGP 21.0 U/L (12-78); Albumin, Blood 3.8 g/dL (3.4-5.0); Albumin/Globulin Ratio 1.1 (0.8-1.8); Anion Gap 9.0 mmol/L (3-11); Aspartate Aminotrans (AST/SGOT 31.0 U/L (12-37); Bilirubin, Total 0.8 mg/dL (0.1-1.0); Blood Urea Nitrogen 32.0 mg/dL (8-24); CO2, Blood 20.0 mmol/L (21-32); Calcium, Blood 9.5 mg/dL (8.5-10.1); Chloride, Blood 113.0 mmol/L (98-108); Creatinine, Blood 2.32 mg/dL (0.40-1.00); Globulin, Blood 3.5 g/dL (2.2-4.0); Glucose, Blood 106.0 mg/dL (70-99); Potassium, Blood 3.9 mmol/L (3.5-5.5); Sodium, Blood 138.0 mmol/L (136-145); Total Protein, Blood 7.3 g/dL (6.4-8.2)
[2025-01-07 14:35] LABS: Source, Urine Foley catheter
[2025-01-07 14:39] LABS: Bilirubin, Urine Neg (Neg); Glucose Qualitative, Urine Neg (Neg); Ketones, Urine Neg (Neg); Leukocyte Esterase, Urine 2+ (Neg); Protein, Urine 2+ (Neg); Specific Gravity, Urine 1.010 (1.003-1.022); Urobilinogen, Urine NORM (Normal)
[2025-01-07 14:44] LABS: Color, Urine Pale Yellow (P-Yellow)
[2025-01-07 14:45] LABS: Red Blood Cells, Urine 25-50 /hpf (0-2)
[2025-01-07] MEDS ORDERED: FLU VACC TS2025(65UP)/MF59C/PF 45 MCG/0.5 ML SYRINGE IM SCH (17:50)
[2025-01-07] MEDS ORDERED: Magnesium Hydroxide Conc 10 ML UDC PO PRN (17:55)
[2025-01-07] MEDS ORDERED: Norco 10-325 T1 EACH PO (18:11)
[2025-01-07 18:36] VITALS: BP 131/80
[2025-01-07] MEDS ORDERED: HYDROcodone 5-APAP 325 TAB PO PRN (19:05)
[2025-01-07 19:37] VITALS: BP 128/77
[2025-01-07] MEDS ORDERED: Heparin Sodium,Porcine 5,000 UNIT/0.5 ML SDV SC SCH (21:00)
[2025-01-07 23:45] VITALS: BP 126/59
[2025-01-08 03:48] VITALS: BP 129/60
[2025-01-08 04:25] LABS: Anion Gap 9.0 mmol/L (3-11); Blood Urea Nitrogen 27.0 mg/dL (8-24); CO2, Blood 20.0 mmol/L (21-32); Calcium, Blood 8.8 mg/dL (8.5-10.1); Chloride, Blood 112.0 mmol/L (98-108); Creatinine, Blood 2.23 mg/dL (0.40-1.00); Glucose, Blood 89.0 mg/dL (70-99); Potassium, Blood 3.0 mmol/L (3.5-5.5); Sodium, Blood 138.0 mmol/L (136-145)
[2025-01-08 08:38] VITALS: BP 157/64
[2025-01-08 11:43] VITALS: BP 108/66
[2025-01-08 16:17] VITALS: BP 145/67
[2025-01-08 19:56] VITALS: BP 134/69
[2025-01-08] MEDS ORDERED: Lactobacil 2-S.Thermo-Bifido 1 1 Cap PO SCH (21:00)
[2025-01-09 05:19] VITALS: BP 135/61
[2025-01-09 06:30] LABS: Albumin, Blood 3.3 g/dL (3.4-5.0); Anion Gap 6 mmol/L (3-11); Blood Urea Nitrogen 28 mg/dL (8-24); CO2, Blood 24 mmol/L (21-32); Calcium, Blood 9.4 mg/dL (8.5-10.1); Chloride, Blood 113 mmol/L (98-108); Creatinine, Blood 2.94 mg/dL (0.40-1.00); Glucose, Blood 92 mg/dL (70-99); Phosphorus, Blood 2.0 mg/dL (2.5-4.9); Potassium, Blood 3.7 mmol/L (3.5-5.5); Sodium, Blood 139 mmol/L (136-145)
[2025-01-09 07:19] VITALS: BP 153/72
[2025-01-09 09:12] LABS: BASOPHILS ABSOLUTE AUTO 0.05 K/mm3 (0.00-0.23); BASOPHILS PERCENT AUTO 1 % (0-2); EOSINOPHILS ABSOLUTE AUTO 0.13 K/mm3 (0.00-0.68); EOSINOPHILS PERCENT AUTO 2 % (0-6); Hematocrit 32.5 % (33.0-51.0); Hemoglobin 10.7 g/dL (11.5-16.0); IMMATURE GRAN ABSOLUTE AUTO 0.02 K/mm3 (0.00-0.10); IMMATURE GRAN PERCENT AUTO 0 % (0-1); LYMPHOCYTES ABSOLUTE AUTO 3.84 K/mm3 (0.84-5.20); LYMPHOCYTES PERCENT AUTO 50 % (21-46); MONOCYTES ABSOLUTE AUTO 0.48 K/mm3 (0.16-1.47); MONOCYTES PERCENT AUTO 6 % (4-13); Mean Corpuscular HGB Conc 32.9 g/dL (31.5-36.5); Mean Corpuscular Volume 92 fL (80-100); NEUTROPHILS ABSOLUTE AUTO 3.24 K/mm3 (1.96-9.15); NEUTROPHILS PERCENT AUTO 42 % (41-73); NRBC ABSOLUTE 0.00 K/mm3 (0.00-0.02); NRBC Auto 0.0 /100 WBC (0.0-0.2); Platelet Count 216 K/mm3 (150-400); RDW Coefficient Variation 14.1 % (11.7-14.2); RDW Standard Deviation 48.2 fL (35.1-46.3)
[2025-01-09 09:26] LABS: Alanine Aminotransfer (ALT/SGP 21.0 U/L (12-78); Albumin, Blood 3.3 g/dL (3.4-5.0); Albumin/Globulin Ratio 1.1 (0.8-1.8); Anion Gap 8.0 mmol/L (3-11); Aspartate Aminotrans (AST/SGOT 19.0 U/L (12-37); Bilirubin, Total 0.3 mg/dL (0.1-1.0); Blood Urea Nitrogen 24.0 mg/dL (8-24); CO2, Blood 22.0 mmol/L (21-32); Calcium, Blood 9.2 mg/dL (8.5-10.1); Chloride, Blood 113.0 mmol/L (98-108); Creatinine, Blood 2.88 mg/dL (0.40-1.00); Globulin, Blood 3.0 g/dL (2.2-4.0); Glucose, Blood 91.0 mg/dL (70-99); Potassium, Blood 3.7 mmol/L (3.5-5.5); Sodium, Blood 139.0 mmol/L (136-145); Total Protein, Blood 6.3 g/dL (6.4-8.2)
[2025-01-09] MEDS ORDERED: HYDR1TAB94 PO (13:23)
[2025-01-09 15:26] VITALS: BP 144/67
== END 2025-01-09 18:00 | disposition home or self-care (01) | DRG 694 ==
LOC: ER 11:34 → PCU 11:35 → MEDS 01-08 13:07 → PCU 01-08 13:08 → MEDS 01-09 06:09
PROVIDERS: Emergency Medicine; Family Medicine; ADMIT Family Medicine
PROC: 0T9B70Z Drainage of Bladder with Drainage Device, Via Natural or Artificial Opening (ICD-10-PCS; principal; 2025-01-07)
DX: N13.30 Unspecified hydronephrosis (principal); N17.9 Acute kidney failure, unspecified; M79.7 Fibromyalgia; I12.9 Hypertensive chronic kidney disease with stage 1 through stage 4 chronic kidney disease, or unspecified chronic kidney disease; N18.30 Chronic kidney disease, stage 3 unspecified; F17.210 Nicotine dependence, cigarettes, uncomplicated; E87.6 Hypokalemia; R54 Age-related physical debility; Z79.02 Long term (current) use of antithrombotics/antiplatelets; Z79.899 Other long term (current) drug therapy; Z85.41 Personal history of malignant neoplasm of cervix uteri; Z90.49 Acquired absence of other specified parts of digestive tract; Z90.710 Acquired absence of both cervix and uterus; Z98.891 History of uterine scar from previous surgery; Z96.0 Presence of urogenital implants; Z88.1 Allergy status to other antibiotic agents; Z88.2 Allergy status to sulfonamides; Z88.8 Allergy status to other drugs, medicaments and biological substances; Z91.0120 Allergy to eggs, unspecified
CPT/HCPCS: 36415; 51702; 74176; 76770; 80048; 80053; 80069; 81001; 83690; 83735; 85025; 87086; 96361; 96374-59; 96376-59; 99285-25; A9270; J1644; J2405; J7030

== ENCOUNTER 2025-01-14 22:06 | Emergency (ER) | payer MEDICARE ==
[~2025-01-14] VITALS: Ht 160 cm; Wt 45.8 kg
[~2025-01-14 22:06] MED LIST changes: +Norco 10-325 T1 EACH PO; +PAXIL PO
[2025-01-14] MEDS ORDERED: NS 1,000 ML IV SCH (23:55)
[2025-01-14 23:57] LABS: BASOPHILS ABSOLUTE AUTO 0.07 K/mm3 (0.00-0.23); BASOPHILS PERCENT AUTO 1 % (0-2); EOSINOPHILS ABSOLUTE AUTO 0.06 K/mm3 (0.00-0.68); EOSINOPHILS PERCENT AUTO 0 % (0-6); Hematocrit 30.8 % (33.0-51.0); Hemoglobin 10.5 g/dL (11.5-16.0); IMMATURE GRAN ABSOLUTE AUTO 0.05 K/mm3 (0.00-0.10); IMMATURE GRAN PERCENT AUTO 0 % (0-1); LYMPHOCYTES ABSOLUTE AUTO 1.56 K/mm3 (0.84-5.20); LYMPHOCYTES PERCENT AUTO 11 % (21-46); MONOCYTES ABSOLUTE AUTO 0.40 K/mm3 (0.16-1.47); MONOCYTES PERCENT AUTO 3 % (4-13); Mean Corpuscular HGB Conc 34.1 g/dL (31.5-36.5); Mean Corpuscular Volume 91 fL (80-100); NEUTROPHILS ABSOLUTE AUTO 11.85 K/mm3 (1.96-9.15); NEUTROPHILS PERCENT AUTO 85 % (41-73); NRBC ABSOLUTE 0.00 K/mm3 (0.00-0.02); NRBC Auto 0.0 /100 WBC (0.0-0.2); Platelet Count 168 K/mm3 (150-400); RDW Coefficient Variation 13.8 % (11.7-14.2); RDW Standard Deviation 45.4 fL (35.1-46.3)
[2025-01-15 00:16] LABS: Alanine Aminotransfer (ALT/SGP 14.0 U/L (12-78); Albumin, Blood 3.1 g/dL (3.4-5.0); Albumin/Globulin Ratio 1.2 (0.8-1.8); Anion Gap 12.0 mmol/L (3-11); Aspartate Aminotrans (AST/SGOT 16.0 U/L (12-37); Bilirubin, Total 0.4 mg/dL (0.1-1.0); Blood Urea Nitrogen 45.0 mg/dL (8-24); CO2, Blood 19.0 mmol/L (21-32); Calcium, Blood 8.5 mg/dL (8.5-10.1); Chloride, Blood 106.0 mmol/L (98-108); Creatinine, Blood 3.28 mg/dL (0.40-1.00); Globulin, Blood 2.5 g/dL (2.2-4.0); Glucose, Blood 75.0 mg/dL (70-99); Potassium, Blood 3.8 mmol/L (3.5-5.5); Sodium, Blood 133.0 mmol/L (136-145); Total Protein, Blood 5.6 g/dL (6.4-8.2)
[2025-01-15 01:58] VITALS: BP 156/59
== END 2025-01-15 01:59 | disposition home or self-care (01) ==
LOC: ER 22:06
PROVIDERS: Emergency Medicine
DX: R19.7 Diarrhea, unspecified (principal); R11.2 Nausea with vomiting, unspecified; T36.0X5A Adverse effect of penicillins, initial encounter; T36.1X5A Adverse effect of cephalosporins and other beta-lactam antibiotics, initial encounter; E86.0 Dehydration; I12.9 Hypertensive chronic kidney disease with stage 1 through stage 4 chronic kidney disease, or unspecified chronic kidney disease; N18.30 Chronic kidney disease, stage 3 unspecified; F17.210 Nicotine dependence, cigarettes, uncomplicated; Z88.8 Allergy status to other drugs, medicaments and biological substances; Z79.899 Other long term (current) drug therapy
CPT/HCPCS: 80053; 85025; 99284; J7030

== ENCOUNTER 2025-01-20 14:24 | Emergency (ER) | payer MEDICARE ==
[~2025-01-20] VITALS: Ht 160 cm; Wt 47.6 kg
[2025-01-20 15:02] LABS: BASOPHILS ABSOLUTE AUTO 0.05 K/mm3 (0.00-0.23); BASOPHILS PERCENT AUTO 1 % (0-2); EOSINOPHILS ABSOLUTE AUTO 0.02 K/mm3 (0.00-0.68); EOSINOPHILS PERCENT AUTO 0 % (0-6); Hematocrit 33.0 % (33.0-51.0); Hemoglobin 11.1 g/dL (11.5-16.0); IMMATURE GRAN ABSOLUTE AUTO 0.03 K/mm3 (0.00-0.10); IMMATURE GRAN PERCENT AUTO 0 % (0-1); LYMPHOCYTES ABSOLUTE AUTO 0.95 K/mm3 (0.84-5.20); LYMPHOCYTES PERCENT AUTO 10 % (21-46); MONOCYTES ABSOLUTE AUTO 0.67 K/mm3 (0.16-1.47); MONOCYTES PERCENT AUTO 7 % (4-13); Mean Corpuscular HGB Conc 33.6 g/dL (31.5-36.5); Mean Corpuscular Volume 89 fL (80-100); NEUTROPHILS ABSOLUTE AUTO 8.21 K/mm3 (1.96-9.15); NEUTROPHILS PERCENT AUTO 83 % (41-73); NRBC ABSOLUTE 0.00 K/mm3 (0.00-0.02); NRBC Auto 0.0 /100 WBC (0.0-0.2); Platelet Count 190 K/mm3 (150-400); RDW Coefficient Variation 13.8 % (11.7-14.2); RDW Standard Deviation 45.1 fL (35.1-46.3)
[2025-01-20 15:57] LABS: Alanine Aminotransfer (ALT/SGP 18.0 U/L (12-78); Albumin, Blood 3.3 g/dL (3.4-5.0); Albumin/Globulin Ratio 1.0 (0.8-1.8); Anion Gap 17.0 mmol/L (3-11); Aspartate Aminotrans (AST/SGOT 21.0 U/L (12-37); Bilirubin, Total 0.4 mg/dL (0.1-1.0); Blood Urea Nitrogen 41.0 mg/dL (8-24); CO2, Blood 13.0 mmol/L (21-32); Calcium, Blood 9.4 mg/dL (8.5-10.1); Chloride, Blood 103.0 mmol/L (98-108); Creatinine, Blood 2.92 mg/dL (0.40-1.00); Globulin, Blood 3.3 g/dL (2.2-4.0); Glucose, Blood 86.0 mg/dL (70-99); Potassium, Blood 3.3 mmol/L (3.5-5.5); Sodium, Blood 130.0 mmol/L (136-145); Total Protein, Blood 6.6 g/dL (6.4-8.2)
[2025-01-20 16:23] LABS: Source, Urine Foley catheter
[2025-01-20 16:39] LABS: Bilirubin, Urine Neg (Neg); Glucose Qualitative, Urine Neg (Neg); Ketones, Urine 2+ (Neg); Leukocyte Esterase, Urine 3+ (Neg); Protein, Urine 3+ (Neg); Specific Gravity, Urine 1.010 (1.003-1.022); Urobilinogen, Urine NORM (Normal)
[2025-01-20 16:41] LABS: Color, Urine Yellow (P-Yellow)
[2025-01-20 16:43] LABS: White Blood Cells, Urine TNTC /hpf (0-5)
[2025-01-20] MEDS ORDERED: Nitrofurantoin/Nitrofuran Mac 100 MG Cap PO ONE (17:20)
[2025-01-20] MEDS ORDERED: Macrobid 100 M100 MG PO (17:23)
[2025-01-20 17:57] VITALS: BP 111/68
== END 2025-01-20 18:08 | disposition home or self-care (01) ==
LOC: ER 14:24
PROVIDERS: Emergency Medicine
DX: N13.6 Pyonephrosis (principal); I12.9 Hypertensive chronic kidney disease with stage 1 through stage 4 chronic kidney disease, or unspecified chronic kidney disease; N18.30 Chronic kidney disease, stage 3 unspecified; F17.210 Nicotine dependence, cigarettes, uncomplicated; Z96.0 Presence of urogenital implants; Z88.1 Allergy status to other antibiotic agents; Z88.8 Allergy status to other drugs, medicaments and biological substances; Z79.02 Long term (current) use of antithrombotics/antiplatelets; Z79.899 Other long term (current) drug therapy
CPT/HCPCS: 51702; 76770; 80053; 81001; 85025; 87077; 87086; 87186; 99284-25; A9270

== ENCOUNTER 2025-02-26 20:13 | Inpatient (IN) | payer MEDICARE ==
[~2025-02-26] VITALS: Ht 160 cm; Wt 39.1 kg
[~2025-02-26 20:13] MED LIST changes: +AMOCLA250S PO; +ATOR40TA PO
[2025-02-26 20:50] LABS: BASOPHILS ABSOLUTE AUTO 0.05 K/mm3 (0.00-0.23); BASOPHILS PERCENT AUTO 0 % (0-2); EOSINOPHILS ABSOLUTE AUTO 0.04 K/mm3 (0.00-0.68); EOSINOPHILS PERCENT AUTO 0 % (0-6); Hematocrit 27.4 % (33.0-51.0); Hemoglobin 9.1 g/dL (11.5-16.0); IMMATURE GRAN ABSOLUTE AUTO 0.07 K/mm3 (0.00-0.10); IMMATURE GRAN PERCENT AUTO 1 % (0-1); LYMPHOCYTES ABSOLUTE AUTO 2.68 K/mm3 (0.84-5.20); LYMPHOCYTES PERCENT AUTO 23 % (21-46); MONOCYTES ABSOLUTE AUTO 0.94 K/mm3 (0.16-1.47); MONOCYTES PERCENT AUTO 8 % (4-13); Mean Corpuscular HGB Conc 33.2 g/dL (31.5-36.5); Mean Corpuscular Volume 94 fL (80-100); NEUTROPHILS ABSOLUTE AUTO 7.81 K/mm3 (1.96-9.15); NEUTROPHILS PERCENT AUTO 68 % (41-73); NRBC ABSOLUTE 0.00 K/mm3 (0.00-0.02); NRBC Auto 0.0 /100 WBC (0.0-0.2); Platelet Count 300 K/mm3 (150-400); RDW Coefficient Variation 15.4 % (11.7-14.2); RDW Standard Deviation 53.6 fL (35.1-46.3)
[2025-02-26] MEDS ORDERED: NS 1,000 ML IV SCH (20:55)
[2025-02-26 21:05] LABS: Magnesium, Blood 1.8 mg/dL (1.6-2.4)
[2025-02-26 21:27] LABS: Alanine Aminotransfer (ALT/SGP 13.0 U/L (12-78); Albumin, Blood 2.8 g/dL (3.4-5.0); Albumin/Globulin Ratio 0.7 (0.8-1.8); Anion Gap 13.0 mmol/L (3-11); Aspartate Aminotrans (AST/SGOT 11.0 U/L (12-37); Bilirubin, Total 0.4 mg/dL (0.1-1.0); Blood Urea Nitrogen 76.0 mg/dL (8-24); CO2, Blood 15.0 mmol/L (21-32); Calcium, Blood 9.4 mg/dL (8.5-10.1); Chloride, Blood 110.0 mmol/L (98-108); Creatinine, Blood 4.16 mg/dL (0.40-1.00); Globulin, Blood 4.1 g/dL (2.2-4.0); Glucose, Blood 108.0 mg/dL (70-99); Phosphorus, Blood 2.4 mg/dL (2.5-4.9); Potassium, Blood 3.5 mmol/L (3.5-5.5); Sodium, Blood 134.0 mmol/L (136-145); Thyroid Stimulating Hormone 0.312 uIU/mL (0.360-4.800); Total Protein, Blood 6.9 g/dL (6.4-8.2)
[2025-02-26] MEDS ORDERED: FLU VACC TS2025(65UP)/MF59C/PF 45 MCG/0.5 ML SYRINGE IM SCH (23:05)
[2025-02-26] MEDS ORDERED: Ondansetron HCl 2 MG / ML 2ML Vial IV PRN (23:10)
[2025-02-26] MEDS ORDERED: Sodium Bicarb 8.4% Inj 100 MEQ in Sodium Chloride 0.45% 1,000 ML IV SCH (23:25)
[2025-02-26] MEDS ORDERED: Albumin (Human) 25gm/100ml 100 ML IV ONE (23:25)
[2025-02-27] MEDS ORDERED: Heparin Sodium,Porcine 5,000 UNIT/0.5 ML SDV SC SCH ×3 (00:07→21:00)
[2025-02-27 01:03] VITALS: BP 103/52
[2025-02-27] MEDS ORDERED: NS 250 ML IV PRN (01:25)
[2025-02-27 03:15] VITALS: BP 90/57
--- NOTE | 2025-02-27 04:43 | NUR ---
SOCIAL SERVICES TECHNICIAN SUMMARY PT ADMITTED FROM ED THIS SHIFT FOR ARF. A&OX4, VSS, BUT SOFT. ORIENTED TO ROOM, CALL LIGHT, SAFETY AND FALL PRECAUTIONS. PT HAS BEEN ASLEEP FOR MOST OF THE SHIFT SINCE ADMISSION ONTO UNIT. CHEST RISE/RESPIRATIONS NOTED. IV LAC WNL. REMAINS ON TELE. SR AT 73. STAGE II PRESSURE ULCER NOTED ON ADMISSION ON UPPER R BUTTOCK. HALF DOLLAR SIZED. PICS TAKEN AND PLACED IN CHART. DR JACKSON NOTIFIED. WOUND CARE ORDERS PLACED. MEPILEX PLACED AND REMAINS CDI. PT ALSO NOTED TO HAVE PREVIOUS C DIFF INFECTION W/ ABX TREATMENT IN NOV. PER PT LOOSE STOOLS HAVE CONT FOR A MONTH NOW. [employer] SPANISH TEACHERBRICE DISLA CONSULTED. NO NEED FOR ISOLATION AT THIS TIME. BED RAILS UP X 2, BED IN LOWEST POSITION, BED WHEELS LOCKED, PERSONAL BELONGINGS AND CALL LIGHT WITHIN REACH FOR SAFETY.
[2025-02-27 06:08] LABS: BASOPHILS ABSOLUTE AUTO 0.04 K/mm3 (0.00-0.23); BASOPHILS PERCENT AUTO 0 % (0-2); EOSINOPHILS ABSOLUTE AUTO 0.07 K/mm3 (0.00-0.68); EOSINOPHILS PERCENT AUTO 1 % (0-6); Hematocrit 23.2 % (33.0-51.0); Hemoglobin 7.2 g/dL (11.5-16.0); IMMATURE GRAN ABSOLUTE AUTO 0.05 K/mm3 (0.00-0.10); IMMATURE GRAN PERCENT AUTO 1 % (0-1); LYMPHOCYTES ABSOLUTE AUTO 3.05 K/mm3 (0.84-5.20); LYMPHOCYTES PERCENT AUTO 33 % (21-46); MONOCYTES ABSOLUTE AUTO 0.82 K/mm3 (0.16-1.47); MONOCYTES PERCENT AUTO 9 % (4-13); Mean Corpuscular HGB Conc 31.0 g/dL (31.5-36.5); Mean Corpuscular Volume 98 fL (80-100); NEUTROPHILS ABSOLUTE AUTO 5.31 K/mm3 (1.96-9.15); NEUTROPHILS PERCENT AUTO 57 % (41-73); NRBC ABSOLUTE 0.00 K/mm3 (0.00-0.02); NRBC Auto 0.0 /100 WBC (0.0-0.2); Platelet Count 231 K/mm3 (150-400); RDW Coefficient Variation 15.6 % (11.7-14.2); RDW Standard Deviation 56.1 fL (35.1-46.3)
[2025-02-27 06:56] LABS: Alanine Aminotransfer (ALT/SGP 11.0 U/L (12-78); Albumin, Blood 3.0 g/dL (3.4-5.0); Albumin/Globulin Ratio 1.0 (0.8-1.8); Anion Gap 12.0 mmol/L (3-11); Aspartate Aminotrans (AST/SGOT 9.0 U/L (12-37); Bilirubin, Total 0.5 mg/dL (0.1-1.0); Blood Urea Nitrogen 78.0 mg/dL (8-24); CO2, Blood 15.0 mmol/L (21-32); Calcium, Blood 8.6 mg/dL (8.5-10.1); Chloride, Blood 113.0 mmol/L (98-108); Creatinine, Blood 3.72 mg/dL (0.40-1.00); Globulin, Blood 2.9 g/dL (2.2-4.0); Glucose, Blood 87.0 mg/dL (70-99); Potassium, Blood 3.2 mmol/L (3.5-5.5); Sodium, Blood 137.0 mmol/L (136-145); Total Protein, Blood 5.9 g/dL (6.4-8.2)
[2025-02-27 07:12] VITALS: BP 108/54
--- NOTE | 2025-02-27 07:31 | NUR ---
ASSUMPTION OF CARE: ASSUMED CARE OF PATIENT. DURING SHIFT CHANGE REPORT. LYING IN BED. BICARB GTTs @ 100mL/hr VIA LAC. BREATHING EVEN AND UNLABORED c RA. MOST RECENT TELE STRIP IN CHART INTERPRETED SINUS RHYTHM c PAIRED PVCs. BED IN LOWEST POSITION. CALL LIGHT WITHIN REACH. ACUTE NEEDS MET.
--- NOTE | 2025-02-27 08:46 | NUR ---
NURSE/PROVIDER/PATIENT ROUNDING: DR. CHUNG AND DR. SWANSON TO BEDSIDE. LABS REVIEWED. CONFIRMED ISOLATION STATUS IN LIGHT OF 10 LOOSE BMs IN LAST TWO DAYS. CATHETER PULLED BY NEPHROLOGY AFTER BEING DISCHARGED 02/08/25.
[2025-02-27 11:37] VITALS: BP 111/54
[2025-02-27 12:21] LABS: Source, Urine Clean Catch
[2025-02-27 13:02] LABS: Bilirubin, Urine Neg (Neg); Color, Urine Yellow (P-Yellow); Glucose Qualitative, Urine Neg (Neg); Ketones, Urine Neg (Neg); Leukocyte Esterase, Urine 3+ (Neg); Protein, Urine 4+ (Neg); Specific Gravity, Urine 1.010 (1.003-1.022); Urobilinogen, Urine NORM (Normal)
[2025-02-27 13:09] LABS: White Blood Cells, Urine 25-50 /hpf (0-5)
[2025-02-27 14:30] LABS: Hematocrit 23.4 % (33.0-51.0); Hemoglobin 7.8 g/dL (11.5-16.0)
[2025-02-27 15:19] LABS: Anion Gap 9.0 mmol/L (3-11); Blood Urea Nitrogen 72.0 mg/dL (8-24); CO2, Blood 22.0 mmol/L (21-32); Calcium, Blood 8.3 mg/dL (8.5-10.1); Chloride, Blood 111.0 mmol/L (98-108); Creatinine, Blood 3.54 mg/dL (0.40-1.00); Ferritin, Serum 173.0 ng/mL (8-252); Glucose, Blood 146.0 mg/dL (70-99); Potassium, Blood 2.9 mmol/L (3.5-5.5); Sodium, Blood 139.0 mmol/L (136-145); Total Iron Binding Capacity 147.0 ug/dL (250-450)
[2025-02-27 15:51] VITALS: BP 95/42
[2025-02-27 17:08] LABS: Campylobacter Sp Not Detected (NOT DETECT); E. Coli O157 Not Detected (NOT DETECT); Enteroaggregative E. coli-EAEC Not Detected (NOT DETECT); Enteropathogenic E. coli-EPEC Not Detected (NOT DETECT); Enterotoxigenic E. coli-ETEC Not Detected (NOT DETECT); Salmonella Sp Not Detected (NOT DETECT); Shiga Toxin-prod E. coli-STEC Not Detected (NOT DETECT); Shigella/Enteroin E. coli-EIEC Not Detected (NOT DETECT); Vibrio Sp Not Detected (NOT DETECT)
[2025-02-27] MEDS ORDERED: Potassium Phosphate Dibasic 30 MM in Dextrose 5% 500 ML IV STA (17:25)
--- NOTE | 2025-02-27 19:30 | NUR ---
END OF SHIFT SUMMARY: A&Ox3-4. UNMOTIVATED TO PARTICIPATE IN MUCH OF CARE; MIXED INCONTINENCE/CONTINENCE SHE WILL SOMETIMES AMBULATE TO BATHROOM AND OTHER TIMES CALLS STATING SHE'S SOILED BED. CALLS APPROPRIATELY. TELE STRIP NSR c BBB & PVCs. BREATHING EVEN AND UNLABORED c RA. K+ REPLACED. BICARB GTTs CHANGED TO LR. STOOL SAMPLE COLLECTED AND +PCR C-DIFF; TOXIN PENDING. ALSO POSITIVE FOR NOROVIRUS. UA COLLECTED AND +UTI. BLADDER SCAN < 300mL; PER ULISES BELTRE FOR QUEZADA IF >300mL. MEDS WHOLE c FLUIDS. BED IN LOWEST POSITION, CALL LIGHT WITHIN REACH, ALL NEEDS MET. REPORT TO ONCOMING NURSE.
[2025-02-27 19:58] VITALS: BP 121/54
[2025-02-28 00:18] VITALS: BP 140/55
[2025-02-28 03:01] VITALS: BP 134/62
--- NOTE | 2025-02-28 04:04 | NUR ---
SHIFT SUMMARY ADMITTED FOR ARF. FULL CODE. WE ARE MONITORING ELECTROLYTES AND INFUSING FLUIDS. SHE IS ON RA, 1 ASSIST W/FWW. A&O X3. SHE IS INCONTINENT OF URINE. SHE HAS HAD FREQUENT INCONTINENT URINATIONS THIS SHIFT. SHE ALSO HAS A UTI. THE URINE HAS A VERY STRONG FOUL ODOR. SHE IS ABLE TO CALL APPROPRIATELY FOR ASSISTANCE. SHE IS COOPERATIVE WITH CARE.
[2025-02-28 07:12] LABS: BASOPHILS ABSOLUTE AUTO 0.02 K/mm3 (0.00-0.23); BASOPHILS PERCENT AUTO 0 % (0-2); EOSINOPHILS ABSOLUTE AUTO 0.05 K/mm3 (0.00-0.68); EOSINOPHILS PERCENT AUTO 1 % (0-6); Hematocrit 21.8 % (33.0-51.0); Hemoglobin 7.1 g/dL (11.5-16.0); IMMATURE GRAN ABSOLUTE AUTO 0.04 K/mm3 (0.00-0.10); IMMATURE GRAN PERCENT AUTO 0 % (0-1); LYMPHOCYTES ABSOLUTE AUTO 2.22 K/mm3 (0.84-5.20); LYMPHOCYTES PERCENT AUTO 22 % (21-46); MONOCYTES ABSOLUTE AUTO 1.02 K/mm3 (0.16-1.47); MONOCYTES PERCENT AUTO 10 % (4-13); Mean Corpuscular HGB Conc 32.6 g/dL (31.5-36.5); Mean Corpuscular Volume 95 fL (80-100); NEUTROPHILS ABSOLUTE AUTO 6.59 K/mm3 (1.96-9.15); NEUTROPHILS PERCENT AUTO 66 % (41-73); NRBC ABSOLUTE 0.00 K/mm3 (0.00-0.02); NRBC Auto 0.0 /100 WBC (0.0-0.2); Platelet Count 229 K/mm3 (150-400); RDW Coefficient Variation 15.4 % (11.7-14.2); RDW Standard Deviation 53.8 fL (35.1-46.3)
[2025-02-28 07:24] VITALS: BP 105/60
[2025-02-28 07:45] LABS: Alanine Aminotransfer (ALT/SGP 9.0 U/L (12-78); Albumin, Blood 2.2 g/dL (3.4-5.0); Albumin/Globulin Ratio 0.8 (0.8-1.8); Anion Gap 10.0 mmol/L (3-11); Aspartate Aminotrans (AST/SGOT 8.0 U/L (12-37); Bilirubin, Total 0.4 mg/dL (0.1-1.0); Blood Urea Nitrogen 69.0 mg/dL (8-24); CO2, Blood 19.0 mmol/L (21-32); Calcium, Blood 8.3 mg/dL (8.5-10.1); Chloride, Blood 115.0 mmol/L (98-108); Creatinine, Blood 2.78 mg/dL (0.40-1.00); Globulin, Blood 2.8 g/dL (2.2-4.0); Glucose, Blood 107.0 mg/dL (70-99); Potassium, Blood 4.2 mmol/L (3.5-5.5); Sodium, Blood 140.0 mmol/L (136-145); Total Protein, Blood 5.0 g/dL (6.4-8.2)
[2025-02-28] MEDS ORDERED: Iron Dextran 50 MG / ML 2ML Vial IV ONE (08:00)
[2025-02-28] MEDS ORDERED: Vitamin B Cmplx/Vit C/Folic Ac 1 Tab PO SCH (09:00)
[2025-02-28] MEDS ORDERED: NS IV ONE (10:00)
[2025-02-28] MEDS ORDERED: IRON DEXTRAN IV ONE (10:00)
[2025-02-28 11:43] VITALS: BP 115/63
--- NOTE | 2025-02-28 13:09 | NUR ---
NOTIFIED BY PRIMARY RN NASEEM CALDWELL THAT PATIENT IS REPORTING TONGUE FEELS "NUMB AND TINGLY" AFTER APPROXIMENTLY 1/2 OF IV IRON INFUSED. IRON INFUSION STOPPED. PT WITHOUT SOB, RASH, VISIBLE SWELLING. AFTER A FEW MINUTES PT STATES TONGUE NUMBNESS AND TINGLING IS RESOLVING. DR CHAUDHRY NOTIFIED AND WILL PLACE ORDERS
[2025-02-28] MEDS ORDERED: diphenhydrAMINE HCl 12.5 MG/5 ML 5MLUDC (Alcohol/Dye Free) PO ONE (13:10)
--- NOTE | 2025-02-28 13:27 | NUR ---
PT REPORTS STILL HAS "JUST A LITTLE BIT OF NUMBNESS" TO TONGUE. PO BENADRYL GIVEN
[2025-02-28] MEDS ORDERED: B-COMPLEX WITH1 EAC2 PO (14:50)
[2025-02-28] MEDS ORDERED: Cefpodoxime Pr100 MG PO (14:51)
[2025-02-28] MEDS ORDERED: VISBIOME 112.51 EACH PO (14:51)
[2025-02-28] MEDS ORDERED: B-1100 M1 PO (14:52)
[2025-02-28] MEDS ORDERED: Lactobacil 2-S.Thermo-Bifido 1 1 Cap PO SCH (15:00)
--- NOTE | 2025-02-28 15:35 | NUR ---
DISCHARGE INSTRUCTIONS GIVEN TO PATIENT AND DAUGHTER, BOTH STATED UNDERSTANDING AND DENIED FURTHER QUESTIONS, PLEASANT TO CARE
[2025-02-28 15:40] VITALS: BP 104/53
[2025-02-28 15:59] LABS: Hematocrit 25.8 % (33.0-51.0); Hemoglobin 8.1 g/dL (11.5-16.0)
--- NOTE | 2025-02-28 18:26 | NUR ---
discharged paper work done, information has not been gone over with patient, patients daughter is her ride home, waiting for her arrival
[2025-02-28 20:11] VITALS: BP 121/65
[2025-03-01 04:53] VITALS: BP 119/64
--- NOTE | 2025-03-01 06:04 | NUR ---
Shift Summary Pt was planned to be discharged yesterday yesterday or last night and taken home by her daughter however daughter never showed up and was unable to be reached by phone. No acute changes. Pt continent/incontinent, attends change prn. Pt is AOx4, 1 sba when up to the BR. Plan to d/c today.
[2025-03-01 06:19] LABS: BASOPHILS ABSOLUTE AUTO 0.03 K/mm3 (0.00-0.23); BASOPHILS PERCENT AUTO 0 % (0-2); EOSINOPHILS ABSOLUTE AUTO 0.04 K/mm3 (0.00-0.68); EOSINOPHILS PERCENT AUTO 0 % (0-6); Hematocrit 22.1 % (33.0-51.0); Hemoglobin 7.2 g/dL (11.5-16.0); IMMATURE GRAN ABSOLUTE AUTO 0.03 K/mm3 (0.00-0.10); IMMATURE GRAN PERCENT AUTO 0 % (0-1); LYMPHOCYTES ABSOLUTE AUTO 2.20 K/mm3 (0.84-5.20); LYMPHOCYTES PERCENT AUTO 22 % (21-46); MONOCYTES ABSOLUTE AUTO 1.12 K/mm3 (0.16-1.47); MONOCYTES PERCENT AUTO 11 % (4-13); Mean Corpuscular HGB Conc 32.6 g/dL (31.5-36.5); Mean Corpuscular Volume 96 fL (80-100); NEUTROPHILS ABSOLUTE AUTO 6.52 K/mm3 (1.96-9.15); NEUTROPHILS PERCENT AUTO 66 % (41-73); NRBC ABSOLUTE 0.00 K/mm3 (0.00-0.02); NRBC Auto 0.0 /100 WBC (0.0-0.2); Platelet Count 239 K/mm3 (150-400); RDW Coefficient Variation 15.8 % (11.7-14.2); RDW Standard Deviation 55.8 fL (35.1-46.3)
[2025-03-01 06:59] LABS: Alanine Aminotransfer (ALT/SGP 10.0 U/L (12-78); Albumin, Blood 2.4 g/dL (3.4-5.0); Albumin/Globulin Ratio 0.8 (0.8-1.8); Anion Gap 7.0 mmol/L (3-11); Aspartate Aminotrans (AST/SGOT 10.0 U/L (12-37); Bilirubin, Total 0.4 mg/dL (0.1-1.0); Blood Urea Nitrogen 65.0 mg/dL (8-24); CO2, Blood 21.0 mmol/L (21-32); Calcium, Blood 8.6 mg/dL (8.5-10.1); Chloride, Blood 115.0 mmol/L (98-108); Creatinine, Blood 2.51 mg/dL (0.40-1.00); Globulin, Blood 3.0 g/dL (2.2-4.0); Glucose, Blood 110.0 mg/dL (70-99); Potassium, Blood 4.6 mmol/L (3.5-5.5); Sodium, Blood 138.0 mmol/L (136-145); Total Protein, Blood 5.4 g/dL (6.4-8.2)
[2025-03-01 07:15] VITALS: BP 112/67
--- NOTE | 2025-03-01 08:41 | NUR ---
DR SIMMS IN ROOM WITH PATIENT, PATIENT STILL DISCHARGED, WAITING FOR TRANSPORTATION
[2025-03-01 11:22] VITALS: BP 113/56
[2025-03-01 11:26] LABS: Hematocrit 22.5 % (33.0-51.0); Hemoglobin 7.4 g/dL (11.5-16.0)
--- NOTE | 2025-03-01 13:25 | NUR ---
DISCHARGE REVIEWED WITH PATIENT AND PATIENTS DAUGHTER. PT AND DAUGHTER VERBALIZE UNDERSTANDING OF INSTRUCTIONS. DISCHARGE TO HOME AT 1323
--- NOTE | 2025-03-01 13:44 | NUR ---
DISCHARGED HOME WITH DAUGHTER, EDUCATION FOR DISCHARGE REVIEWED WITH KAMRON NARVAEZ
--- NOTE | 2025-03-01 14:49 | NUR ---
IV SITE STAFF NURSE RELATED THAT PT MAY HAVE LEFT WITHHER IV STILL IN PLACE. ATTEMPTED TO CALL PT AT [phone]. "THIS PHONE NUMBER IS NOT ACCEPTING PHONE CALLS AT THIS TIME." THEN ATTEMPTED TO CALL DAUGHTER NUMBER [phone]. "THIS PHONE NUMBER IS NOT ACCEPTING PHONE CALLS AT THIS TIME."
== END 2025-03-01 13:25 | disposition home or self-care (01) | DRG 683 ==
LOC: ER 20:13 → MEDS 23:04
PROVIDERS: Student in an Organized Health Care Education/Training Program; ADMIT Internal Medicine
DX: N17.9 Acute kidney failure, unspecified (principal); A04.72 Enterocolitis due to Clostridium difficile, not specified as recurrent; E87.20 Acidosis, unspecified; M79.7 Fibromyalgia; I12.9 Hypertensive chronic kidney disease with stage 1 through stage 4 chronic kidney disease, or unspecified chronic kidney disease; N18.4 Chronic kidney disease, stage 4 (severe); F17.210 Nicotine dependence, cigarettes, uncomplicated; I73.9 Peripheral vascular disease, unspecified; E86.0 Dehydration; L89.302 Pressure ulcer of unspecified buttock, stage 2; E83.39 Other disorders of phosphorus metabolism; E87.6 Hypokalemia; D63.1 Anemia in chronic kidney disease; E78.5 Hyperlipidemia, unspecified; G47.00 Insomnia, unspecified; R91.1 Solitary pulmonary nodule; Z88.8 Allergy status to other drugs, medicaments and biological substances; Z88.1 Allergy status to other antibiotic agents; Z85.41 Personal history of malignant neoplasm of cervix uteri; Z90.49 Acquired absence of other specified parts of digestive tract; Z90.710 Acquired absence of both cervix and uterus; Z87.440 Personal history of urinary (tract) infections
CPT/HCPCS: 36415; 76770; 80048; 80053; 81001; 82607; 82728; 82746; 83540; 83550; 83690; 83735; 84100; 84439; 84443; 84484; 85014; 85018; 85025; 87077; 87086; 87186; 87324; 87507; 93005; 93010; 97116; 97162; 99285-25; A9270; J1644; J1750; J2405; J7030; J7050; J7060; J7120; P9047

== ENCOUNTER 2025-03-02 13:33 | Emergency (ER) | payer MEDICARE ==
[~2025-03-02] VITALS: Ht 160 cm; Wt 39.0 kg
[~2025-03-02 13:33] MED LIST changes: +B-1100 M1 PO; +B-COMPLEX WITH1 EAC2 PO; +Cefpodoxime Pr100 MG PO
[2025-03-02 14:28] VITALS: BP 91/61
[2025-03-02 15:36] LABS: BASOPHILS ABSOLUTE AUTO 0.03 K/mm3 (0.00-0.23); BASOPHILS PERCENT AUTO 0 % (0-2); EOSINOPHILS ABSOLUTE AUTO 0.03 K/mm3 (0.00-0.68); EOSINOPHILS PERCENT AUTO 0 % (0-6); Hematocrit 25.8 % (33.0-51.0); Hemoglobin 8.2 g/dL (11.5-16.0); IMMATURE GRAN ABSOLUTE AUTO 0.03 K/mm3 (0.00-0.10); IMMATURE GRAN PERCENT AUTO 0 % (0-1); LYMPHOCYTES ABSOLUTE AUTO 1.58 K/mm3 (0.84-5.20); LYMPHOCYTES PERCENT AUTO 19 % (21-46); MONOCYTES ABSOLUTE AUTO 0.89 K/mm3 (0.16-1.47); MONOCYTES PERCENT AUTO 11 % (4-13); Mean Corpuscular HGB Conc 31.8 g/dL (31.5-36.5); Mean Corpuscular Volume 98 fL (80-100); NEUTROPHILS ABSOLUTE AUTO 5.93 K/mm3 (1.96-9.15); NEUTROPHILS PERCENT AUTO 70 % (41-73); NRBC ABSOLUTE 0.00 K/mm3 (0.00-0.02); NRBC Auto 0.0 /100 WBC (0.0-0.2); Platelet Count 287 K/mm3 (150-400); RDW Coefficient Variation 16.1 % (11.7-14.2); RDW Standard Deviation 58.0 fL (35.1-46.3)
[2025-03-02 16:06] LABS: Alanine Aminotransfer (ALT/SGP 16.0 U/L (12-78); Albumin, Blood 3.1 g/dL (3.4-5.0); Albumin/Globulin Ratio 0.7 (0.8-1.8); Anion Gap 12.0 mmol/L (3-11); Aspartate Aminotrans (AST/SGOT 15.0 U/L (12-37); Bilirubin, Total 0.6 mg/dL (0.1-1.0); Blood Urea Nitrogen 66.0 mg/dL (8-24); CO2, Blood 19.0 mmol/L (21-32); Calcium, Blood 9.8 mg/dL (8.5-10.1); Chloride, Blood 107.0 mmol/L (98-108); Creatinine, Blood 2.26 mg/dL (0.40-1.00); Globulin, Blood 4.2 g/dL (2.2-4.0); Glucose, Blood 111.0 mg/dL (70-99); Potassium, Blood 4.6 mmol/L (3.5-5.5); Sodium, Blood 133.0 mmol/L (136-145); Total Protein, Blood 7.3 g/dL (6.4-8.2)
== END 2025-03-02 22:27 | disposition home or self-care (01) ==
LOC: ER 13:33
PROVIDERS: Student in an Organized Health Care Education/Training Program
DX: N28.9 Disorder of kidney and ureter, unspecified (principal); I12.9 Hypertensive chronic kidney disease with stage 1 through stage 4 chronic kidney disease, or unspecified chronic kidney disease; N18.30 Chronic kidney disease, stage 3 unspecified; F17.200 Nicotine dependence, unspecified, uncomplicated; Z88.1 Allergy status to other antibiotic agents; Z88.8 Allergy status to other drugs, medicaments and biological substances; Z79.02 Long term (current) use of antithrombotics/antiplatelets; Z79.899 Other long term (current) drug therapy
CPT/HCPCS: 80053; 83880; 85025; 99284

== ENCOUNTER 2025-03-04 16:09 | Inpatient (IN) | payer MEDICARE ==
[~2025-03-04] VITALS: Ht 160 cm; Wt 46.3 kg
[2025-03-04] MEDS ORDERED: HYDROmorphone HCl/Pf 1MG SYR IV ONE ×2 (20:00→21:10)
[2025-03-04 20:52] LABS: BASOPHILS ABSOLUTE AUTO 0.01 K/mm3 (0.00-0.23); BASOPHILS PERCENT AUTO 0 % (0-2); EOSINOPHILS ABSOLUTE AUTO 0.01 K/mm3 (0.00-0.68); EOSINOPHILS PERCENT AUTO 0 % (0-6); Hematocrit 21.0 % (33.0-51.0); Hemoglobin 6.8 g/dL (11.5-16.0); IMMATURE GRAN ABSOLUTE AUTO 0.05 K/mm3 (0.00-0.10); IMMATURE GRAN PERCENT AUTO 1 % (0-1); LYMPHOCYTES ABSOLUTE AUTO 1.01 K/mm3 (0.84-5.20); LYMPHOCYTES PERCENT AUTO 12 % (21-46); MONOCYTES ABSOLUTE AUTO 0.76 K/mm3 (0.16-1.47); MONOCYTES PERCENT AUTO 9 % (4-13); Mean Corpuscular HGB Conc 32.4 g/dL (31.5-36.5); Mean Corpuscular Volume 99 fL (80-100); NEUTROPHILS ABSOLUTE AUTO 6.50 K/mm3 (1.96-9.15); NEUTROPHILS PERCENT AUTO 78 % (41-73); NRBC ABSOLUTE 0.00 K/mm3 (0.00-0.02); NRBC Auto 0.0 /100 WBC (0.0-0.2); Platelet Count 257 K/mm3 (150-400); RDW Coefficient Variation 15.5 % (11.7-14.2); RDW Standard Deviation 55.0 fL (35.1-46.3)
[2025-03-04 21:06] LABS: IMMATURE RETIC FRACTION 15.40 % (2.3-16.0); RETIC HGB EQUIVALENT 39.00 pg (28.20-36.60); RETICULOCYTE ABSOLUTE 0.0590 M/mm3 (0.0200-0.1100); RETICULOCYTE COUNT PERCENT 2.73 % (0.50-2.50)
[2025-03-04 21:14] LABS: Alanine Aminotransfer (ALT/SGP 33.0 U/L (12-78); Albumin, Blood 2.6 g/dL (3.4-5.0); Albumin/Globulin Ratio 0.6 (0.8-1.8); Anion Gap 13.0 mmol/L (3-11); Aspartate Aminotrans (AST/SGOT 30.0 U/L (12-37); Bilirubin, Total 0.5 mg/dL (0.1-1.0); Blood Urea Nitrogen 57.0 mg/dL (8-24); CO2, Blood 19.0 mmol/L (21-32); Calcium, Blood 9.5 mg/dL (8.5-10.1); Chloride, Blood 106.0 mmol/L (98-108); Creatinine, Blood 2.17 mg/dL (0.40-1.00); Globulin, Blood 4.0 g/dL (2.2-4.0); Glucose, Blood 117.0 mg/dL (70-99); Potassium, Blood 3.6 mmol/L (3.5-5.5); Sodium, Blood 134.0 mmol/L (136-145); Total Protein, Blood 6.6 g/dL (6.4-8.2)
[2025-03-04] MEDS ORDERED: Ondansetron HCl 2 MG / ML 2ML Vial IV PRN (21:35)
[2025-03-04] MEDS ORDERED: HYDROmorphone HCl/Pf 1MG SYR IV PRN (21:35)
[2025-03-04] MEDS ORDERED: NS 1,000 ML IV SCH (21:40)
[2025-03-04 23:48] VITALS: BP 122/68
[2025-03-04] MEDS ORDERED: NS 250 ML IV PRN (23:55)
[2025-03-05] VITALS (12 sets, daily range): BP systolic 92–154; BP diastolic 65–135
[2025-03-05] MEDS ORDERED: METO25ER PO (00:22)
[2025-03-05] MEDS ORDERED: NS 1,000 ML IV SCH ×2 (02:20→08:25)
[2025-03-05 07:16] LABS: BASOPHILS ABSOLUTE AUTO 0.02 K/mm3 (0.00-0.23); BASOPHILS PERCENT AUTO 0 % (0-2); EOSINOPHILS ABSOLUTE AUTO 0.03 K/mm3 (0.00-0.68); EOSINOPHILS PERCENT AUTO 0 % (0-6); Hematocrit 25.4 % (33.0-51.0); Hemoglobin 8.3 g/dL (11.5-16.0); IMMATURE GRAN ABSOLUTE AUTO 0.04 K/mm3 (0.00-0.10); IMMATURE GRAN PERCENT AUTO 1 % (0-1); LYMPHOCYTES ABSOLUTE AUTO 1.37 K/mm3 (0.84-5.20); LYMPHOCYTES PERCENT AUTO 19 % (21-46); MONOCYTES ABSOLUTE AUTO 0.69 K/mm3 (0.16-1.47); MONOCYTES PERCENT AUTO 9 % (4-13); Mean Corpuscular HGB Conc 32.7 g/dL (31.5-36.5); NEUTROPHILS ABSOLUTE AUTO 5.24 K/mm3 (1.96-9.15); NEUTROPHILS PERCENT AUTO 71 % (41-73); NRBC ABSOLUTE 0.00 K/mm3 (0.00-0.02); NRBC Auto 0.0 /100 WBC (0.0-0.2); Platelet Count 232 K/mm3 (150-400); RDW Coefficient Variation 16.3 % (11.7-14.2); RDW Standard Deviation 54.7 fL (35.1-46.3)
[2025-03-05 07:18] LABS: Mean Corpuscular Volume 94 fL (80-100)
[2025-03-05 07:41] LABS: Alanine Aminotransfer (ALT/SGP 30.0 U/L (12-78); Albumin, Blood 2.4 g/dL (3.4-5.0); Albumin/Globulin Ratio 0.7 (0.8-1.8); Anion Gap 10.0 mmol/L (3-11); Aspartate Aminotrans (AST/SGOT 22.0 U/L (12-37); Bilirubin, Total 0.8 mg/dL (0.1-1.0); Blood Urea Nitrogen 53.0 mg/dL (8-24); CO2, Blood 20.0 mmol/L (21-32); Calcium, Blood 9.3 mg/dL (8.5-10.1); Chloride, Blood 110.0 mmol/L (98-108); Creatinine, Blood 1.86 mg/dL (0.40-1.00); Globulin, Blood 3.6 g/dL (2.2-4.0); Glucose, Blood 109.0 mg/dL (70-99); Potassium, Blood 4.0 mmol/L (3.5-5.5); Sodium, Blood 136.0 mmol/L (136-145); Total Protein, Blood 6.0 g/dL (6.4-8.2)
[2025-03-05] MEDS ORDERED: Magnesium Hydroxide Conc 10 ML UDC PO PRN (08:25)
[2025-03-05] MEDS ORDERED: FLU VACC TS2025(65UP)/MF59C/PF 45 MCG/0.5 ML SYRINGE IM SCH (08:35)
[2025-03-05] MEDS ORDERED: Heparin Sodium,Porcine 5,000 UNIT/0.5 ML SDV SC SCH (09:00)
[2025-03-05] MEDS ORDERED: NS 500 ML IV ONE (17:30)
--- NOTE | 2025-03-05 17:30 | NUR ---
VS RECHECKED BY THIS RN BEFORE GIVING PO NARCOTICS. BP IS STABLE, HR IS 130 ON BIOX. UPON ASCULTATION. RATE IS FAST AND MURMUR HEARD. PT REPORTS THAT SHE HAS HX OF MURMUR AND THAT SHE HAS NOT TAKEN METOPROLOL HOME DOSE SINCE MONDAY. DR. GARCIA CALLED AT 1730 AND MADE AWARE OF THE ABOVE, SEE NEW ORDERS.
--- NOTE | 2025-03-05 17:58 | NUR ---
TELE APPLIED AND BOX/PT VERIFIED AT THIS TIME WITH TECH MONITOR.
[2025-03-06] VITALS (19 sets, daily range): BP systolic 82–133; BP diastolic 53–83
--- NOTE | 2025-03-06 05:07 | NUR ---
SHIFT SUMMARY S/P LEFT HIP FX, AWAITING POSSIBLE SURGERY TODAY. NPO SINCE MIDNIGHT WITH HCG SCRUB COMPLETE. HEART RATE TRENDED DOWN T/O NIGHT, FROM 130'S ST TO NOW 101 ST PER HOSE COUPLING JOINER. PT CONT. TO DENY CHEST PAIN/PRESSURE OR SOB. PAIN MANAGED PER EMAR WITH ORAL MEDICATIONS, REFUSED ICE THERAPY. PUREWICK IN PLACE, ATTENDS CHANGED PRN. YELLOW/GREGORY TINGED URINE WITH FOUL ODOR NOTED IN CANISTER. REPORTS FREQUENT HX OF UTI, DENIES PAIN WITH VOIDS. IVF INFUSING PER ORDERS. ON BEDREST. IS A/O AND ABLE TO MAKE NEEDS KNOWN. CURRENTLY RESTING IN BED WITH CALL LIGHT IN REACH, EYES CLOSED, AND RESP EVEN. REACH. WILL GIVE REPORT TO ONCOMING RN. PLAN FOR POSSIBLE SURGERY TODAY.
[2025-03-06 05:21] LABS: BASOPHILS ABSOLUTE AUTO 0.02 K/mm3 (0.00-0.23); BASOPHILS PERCENT AUTO 0 % (0-2); EOSINOPHILS ABSOLUTE AUTO 0.04 K/mm3 (0.00-0.68); EOSINOPHILS PERCENT AUTO 0 % (0-6); Hematocrit 25.9 % (33.0-51.0); Hemoglobin 8.4 g/dL (11.5-16.0); IMMATURE GRAN ABSOLUTE AUTO 0.04 K/mm3 (0.00-0.10); IMMATURE GRAN PERCENT AUTO 0 % (0-1); LYMPHOCYTES ABSOLUTE AUTO 1.27 K/mm3 (0.84-5.20); LYMPHOCYTES PERCENT AUTO 13 % (21-46); MONOCYTES ABSOLUTE AUTO 0.90 K/mm3 (0.16-1.47); MONOCYTES PERCENT AUTO 9 % (4-13); Mean Corpuscular HGB Conc 32.4 g/dL (31.5-36.5); Mean Corpuscular Volume 98 fL (80-100); NEUTROPHILS ABSOLUTE AUTO 7.26 K/mm3 (1.96-9.15); NEUTROPHILS PERCENT AUTO 76 % (41-73); NRBC ABSOLUTE 0.00 K/mm3 (0.00-0.02); NRBC Auto 0.0 /100 WBC (0.0-0.2); Platelet Count 253 K/mm3 (150-400); RDW Coefficient Variation 17.0 % (11.7-14.2); RDW Standard Deviation 59.6 fL (35.1-46.3)
[2025-03-06 05:50] LABS: Alanine Aminotransfer (ALT/SGP 44.0 U/L (12-78); Albumin, Blood 2.1 g/dL (3.4-5.0); Albumin/Globulin Ratio 0.6 (0.8-1.8); Anion Gap 10.0 mmol/L (3-11); Aspartate Aminotrans (AST/SGOT 40.0 U/L (12-37); Bilirubin, Total 0.8 mg/dL (0.1-1.0); Blood Urea Nitrogen 42.0 mg/dL (8-24); CO2, Blood 18.0 mmol/L (21-32); Calcium, Blood 9.0 mg/dL (8.5-10.1); Chloride, Blood 111.0 mmol/L (98-108); Creatinine, Blood 1.71 mg/dL (0.40-1.00); Globulin, Blood 3.6 g/dL (2.2-4.0); Glucose, Blood 112.0 mg/dL (70-99); Potassium, Blood 3.6 mmol/L (3.5-5.5); Sodium, Blood 135.0 mmol/L (136-145); Total Protein, Blood 5.7 g/dL (6.4-8.2)
--- NOTE | 2025-03-06 14:50 | NUR ---
TO [facility] FOR LEFT HIP FX. A/O X 2-3, SOME CONFUSION AT TIMES. REPORTS 8/10 PAIN. History, Chart, Medications and Allergies reviewed before start of procedure. Lungs clear T/O to Auscultation. Patient confirms NPO status and agrees with scheduled surgery. Pre-Op teaching done. Pt verbalizes understanding. CHLORHEXIDINE WIPE TO LEFT HIP.
[2025-03-06] MEDS ORDERED: Bupivacaine HCl 2.5 MG/ML 10ML P/F Injection ONE (15:33)
[2025-03-06] MEDS ORDERED: FentaNYL Citrate 50 MCG/ML 2 ML Injection ONE ×2 (15:38→17:38)
--- NOTE | 2025-03-06 15:42 | NUR ---
TRANSPORT TO DAY SURGERY @1183
[2025-03-06] MEDS ORDERED: Phenylephrine HCl 100 MCG/ML-NS 10MLSYR (1MG/10ML) ONE (15:53)
[2025-03-06] MEDS ORDERED: Dexamethasone Sod Phos 10 MG/ML 1ML VIAL ONE (16:02)
[2025-03-06] MEDS ORDERED: Ondansetron HCl 2 MG / ML 2ML Vial ONE (16:02)
[2025-03-06] MEDS ORDERED: HYDROmorphone HCl/Pf 1MG SYR ONE ×2 (16:14→16:46)
[2025-03-06] MEDS ORDERED: Lidocaine 1%-Epineph 1:200000 30 ML SDV INJ ONE (16:14)
[2025-03-06] MEDS ORDERED: Metoclopramide HCl 5MG / ML 2ML Vial IV PRN (16:25)
[2025-03-06] MEDS ORDERED: FentaNYL Citrate 50 MCG/ML 2 ML Injection IV PRN ×2 (16:25)
[2025-03-06] MEDS ORDERED: HYDROmorphone HCl/Pf 1MG SYR IV PRN ×2 (16:25)
--- NOTE | 2025-03-06 16:49 | NUR ---
SHIFT SUMMARY PATIENT HAS BEEN NPO THIS SHIFT FOR SURGERY ON L HIP FX, MEDICATED FOR PAIN PRN. TELE IN PLACE AND SINUS TACHY PER TECH IN THE 100S. CALL FROM TECH @0800 FOT 6 SEC SVT, PATIENT ASYMPTOMATIC AND VSS. RETURN ST IN 90S. MESSAGE LEFT FOR DR. RAYMOND FOR AN UPDATE NO NEW ORDERS. NO TELE EVENTS SINCE. PATIENT LEFT FOR DAY SURGERY @1415. AWAITING CALL FOR REPORT FROM PACU.
--- NOTE | 2025-03-06 18:23 | NUR ---
POST-OP PATIENT ARRIVES TO ROOM 224 @ 1820, X-RAY TECH IN TO DO IMAGES OF LEFT LEG AND HIP, PATIENT ON 2L NC, DROWSY, TEARFUL, AND FORGETFUL EASILY REDIRECTED.BED ALARM ON FOR SAFETY. SOFT BPS,90S/60S. SPO2 92-94%, PER SHIPS EQUIPMENT ENGINEER ST 117. LR RUNNING @50ML. BRIEFS CHANGED AND PUREWICK IN PLACE. CALL LIGHT IN REACH
[2025-03-07 03:54] VITALS: BP 133/78
--- NOTE | 2025-03-07 05:00 | NUR ---
SHIFT SUMMARY PT IS POD 2 S/P COLECTOMY. ABD INCISIONS CONT TO HAVE BRUISING AND REDNESS, NO CHANGES NOTED SINCE PREVIOUS NIGHT. PT IS LOUIE FULL LIQUID DIET. IS VOIDING AND PASSING FLATUS. AMB IND IN HALLWAY AND ROOM. IV PATENT/SL. MEDICATED X2 FOR PAIN PER EMAR, OXY AND 650MG TYLENOL. IS A/OX4 WITH VSS ON RA. PT REPORTS SLEEPING SOUNDLY T/O NIGHT. SHE RESTING IN BED, EATING APPLESAUCE. HAS CALL LIGHT IN REACH. DENIES NEEDS. REF SCDS. PLAN TO ADVANCE DIET TODAY LOUIE. WILL GIVE REPORT TO ONCOMING RN.
--- NOTE | 2025-03-07 05:23 | NUR ---
SHIFT SUMMARY POD 1 S/P LEFT HIP PINNING. AQUACEL TO LEFT CDI. ICE THERAPY APPLIED T/O SHIFT TOLERATED. DENIED PAIN UNTIL THIS MORNING, MED X 1 WITH 5MG OXY AND 650MG TYLENOL. IS A/OX3-4 WITH VSS. HR NSR AT 85 BPM PER NEWS COPY EDITOR. SP02 96% ON RA, CONT BIOX IN PLACE. IVF INFUSING PER ORDER AT 125ML/HR; URINE DARK YELLOW IN COLOR WITH STRONG ODOR. ORDER FOR A UA RECEIVED AT THIS TIME, AWAITING VOID. PUREWICK, CANISTER AND ATTENDS CHANGED. PT LOUIE PO INTAKE, DENIES N/V. AWAITING FIRST OOB AMB POST OP. PT DENIES N/T. WIGGLES FINGERS AND TOES, ABLE TO ASSIST WITH REPOSITIONING. BED ALARM ON FOR SAFETY. PT RESTING IN BED WITH EYES CLOSED, RESP EVEN, AND CALL LIGHT IN REACH. PLAN TO WORK WITH THERAPY TODAY. WILL GIVE REPORT TO ONCOMING RN.
[2025-03-07 05:54] LABS: BASOPHILS ABSOLUTE AUTO 0.01 K/mm3 (0.00-0.23); BASOPHILS PERCENT AUTO 0 % (0-2); EOSINOPHILS ABSOLUTE AUTO 0.00 K/mm3 (0.00-0.68); EOSINOPHILS PERCENT AUTO 0 % (0-6); Hematocrit 24.6 % (33.0-51.0); Hemoglobin 7.8 g/dL (11.5-16.0); IMMATURE GRAN ABSOLUTE AUTO 0.04 K/mm3 (0.00-0.10); IMMATURE GRAN PERCENT AUTO 0 % (0-1); LYMPHOCYTES ABSOLUTE AUTO 0.75 K/mm3 (0.84-5.20); LYMPHOCYTES PERCENT AUTO 8 % (21-46); MONOCYTES ABSOLUTE AUTO 0.68 K/mm3 (0.16-1.47); MONOCYTES PERCENT AUTO 7 % (4-13); Mean Corpuscular HGB Conc 31.7 g/dL (31.5-36.5); Mean Corpuscular Volume 99 fL (80-100); NEUTROPHILS ABSOLUTE AUTO 8.36 K/mm3 (1.96-9.15); NEUTROPHILS PERCENT AUTO 85 % (41-73); NRBC ABSOLUTE 0.00 K/mm3 (0.00-0.02); NRBC Auto 0.0 /100 WBC (0.0-0.2); Platelet Count 249 K/mm3 (150-400); RDW Coefficient Variation 17.1 % (11.7-14.2); RDW Standard Deviation 60.4 fL (35.1-46.3)
[2025-03-07 06:22] LABS: Alanine Aminotransfer (ALT/SGP 35.0 U/L (12-78); Albumin, Blood 1.8 g/dL (3.4-5.0); Albumin/Globulin Ratio 0.5 (0.8-1.8); Anion Gap 12.0 mmol/L (3-11); Aspartate Aminotrans (AST/SGOT 23.0 U/L (12-37); Bilirubin, Total 0.4 mg/dL (0.1-1.0); Blood Urea Nitrogen 36.0 mg/dL (8-24); CO2, Blood 15.0 mmol/L (21-32); Calcium, Blood 8.5 mg/dL (8.5-10.1); Chloride, Blood 113.0 mmol/L (98-108); Creatinine, Blood 1.71 mg/dL (0.40-1.00); Globulin, Blood 3.5 g/dL (2.2-4.0); Glucose, Blood 130.0 mg/dL (70-99); Potassium, Blood 4.0 mmol/L (3.5-5.5); Sodium, Blood 136.0 mmol/L (136-145); Total Protein, Blood 5.3 g/dL (6.4-8.2)
[2025-03-07 07:04] VITALS: BP 98/69
[2025-03-07 11:45] LABS: Ferritin, Serum 1528.0 ng/mL (8-252); Total Iron Binding Capacity 276.0 ug/dL (250-450)
--- NOTE | 2025-03-07 12:19 | NUR ---
"Spiritual Care Consult| Ordered by Dr. Ronni NICOLE Pt. is sitting up at bedside and eating lunch when she welcomes my visit. Pt. is mostly pleasant, but as a life review is facilitated the Pt. became emotional. Matters of que and belief are considered. Pt. verbalized that she lives with her daughter, and verbalized that she felt that it was good. Past bas experiences in a adventist have given he cause to walk away from it. Listening with emapthy and a calming presence. Pt. displayed evidence of being encouraged. Prayed with the Pt. Pt. verbalized gratitude for the spiritual care visit."
[2025-03-07 12:20] VITALS: BP 135/76
[2025-03-07 13:42] LABS: Source, Urine Voided
--- NOTE | 2025-03-07 14:02 | NUR ---
SUMMARY PATIENT POD1 L HIP PINNING. ONE SITE ON L HIP WITH AQUACEL IS C/D/I. WORKS WITH PT/OT THIS AM. UP IN CHAIR WITH ONE ASSIST NEGRITAWWHITNEY. PATIENT INCONT AND HAS CLEAN ATTENDS IN PLACE. BED BATH DONE THIS AFTERNOON. URINE SAMPLE SENT TO LAB. MEDICATED FOR PAIN THIS AM. TOLERATES WELL. VSS. REPORT TO LEVON NARVAEZ TO ASSUME CARE THIS AFTERNOON.
[2025-03-07 14:04] LABS: Bilirubin, Urine Neg (Neg); Color, Urine Yellow (P-Yellow); Glucose Qualitative, Urine Neg (Neg); Ketones, Urine Neg (Neg); Leukocyte Esterase, Urine 3+ (Neg); Protein, Urine 3+ (Neg); Specific Gravity, Urine 1.010 (1.003-1.022); Urobilinogen, Urine NORM (Normal)
[2025-03-07 14:18] LABS: White Blood Cells, Urine TNTC /hpf (0-5)
[2025-03-07 14:21] VITALS: BP 129/68
[2025-03-07 19:25] VITALS: BP 124/62
[2025-03-07 23:43] VITALS: BP 107/67
[2025-03-08 03:48] VITALS: BP 124/68
--- NOTE | 2025-03-08 06:09 | NUR ---
SHIFT SUMMARY AOX4. ANSWERS QUESTIONS APPROPRIATE & FOLLOWS DIRECTIONS. EPISODE TEARFULNESS @BEGINNING OF SHIFT REGARDING FAMILY DYNAMICS & OVERALL HEALTH, PT REQUESTED ATIVAN. POD 2-L HIP PINNING. AQUACEL DRESSING C/D/I. PT REPORTS 8-10/10 PAIN, MEDICATED 1x W/TYLENOL & 1x W/5MG PO OXYCODONE & PT ABLE TO REST COMFORTABLY. ABLE TO WIGGLE FEET, TOES. CAP REFILL <3 SEC. DENIES N/T, DYSPNEA OR N/V. HAD EPISODE SVT FOR APPROX 6 SEC PER GOVERNMENT DOCUMENTS LIBRARIAN THIS AM AROUND 0408, W/HR 150-160'S. AFTER REVIEWING CHART I NOTED PT HAS HAD TACHY HR MOST OF TIME & EVERY AM HAS SVT PER TELE, PT RECIEVING 25MG XL METOPROLOL DAILY. INFORMED DR RUANO & HE ORDERED MAG LAB & CMP. REST OF VSS. NO BM THIS SHIFT. HAS VOIDED INCONT MULTIPLE TIMES W/FOUL ODOR URINE. CALL LIGHT IN REACH & PT ABLE TO MAKE NEEDS KNOWN.
[2025-03-08 06:26] LABS: Alanine Aminotransfer (ALT/SGP 22.0 U/L (12-78); Albumin, Blood 2.0 g/dL (3.4-5.0); Albumin/Globulin Ratio 0.6 (0.8-1.8); Anion Gap 9.0 mmol/L (3-11); Aspartate Aminotrans (AST/SGOT 10.0 U/L (12-37); Bilirubin, Total 0.3 mg/dL (0.1-1.0); Blood Urea Nitrogen 50.0 mg/dL (8-24); CO2, Blood 19.0 mmol/L (21-32); Calcium, Blood 8.7 mg/dL (8.5-10.1); Chloride, Blood 112.0 mmol/L (98-108); Creatinine, Blood 2.3 mg/dL (0.40-1.00); Globulin, Blood 3.2 g/dL (2.2-4.0); Glucose, Blood 87.0 mg/dL (70-99); Magnesium, Blood 1.9 mg/dL (1.6-2.4); Potassium, Blood 4.0 mmol/L (3.5-5.5); Sodium, Blood 136.0 mmol/L (136-145); Total Protein, Blood 5.2 g/dL (6.4-8.2)
[2025-03-08 07:36] VITALS: BP 148/71
[2025-03-08 10:33] LABS: Hematocrit 22.5 % (33.0-51.0); Hemoglobin 7.3 g/dL (11.5-16.0)
[2025-03-08 12:23] VITALS: BP 154/70
[2025-03-08 14:50] VITALS: BP 151/54
[2025-03-08 14:52] LABS: Hematocrit 24.1 % (33.0-51.0); Hemoglobin 7.5 g/dL (11.5-16.0)
[2025-03-08] MEDS ORDERED: LevoFLOXacin 750 MG/D5W 150ML 150 ML IV ONE (15:00)
[2025-03-08 20:37] VITALS: BP 127/67
[2025-03-08] MEDS ORDERED: Lactobacil 2-S.Thermo-Bifido 1 1 Cap PO SCH (21:00)
[2025-03-09] VITALS (11 sets, daily range): BP systolic 73–154; BP diastolic 47–68
--- NOTE | 2025-03-09 04:51 | NUR ---
SHIFT SUMMARY AOX3. PLEASENT & COOPERATIVE W/CARE. POD3-L HIP PINNING. SM AQUACEL DRESSING C/D/I. REPORTED 8/10 L HIP PAIN @HS, MEDICATED w/5MG OXYCODONE & PT REPORTED RELIEF STATING PAIN LEVEL DROPPING TO 6/10. ABLE TO WIGGLE TOES & MOVE L FOOT. DENIES N/T. STRONG PULSE. CAP REFILL <3 SEC. DENIES N/V OR DYSPNEA. HAD MULTIPLE INCONT VOIDS THIS SHIFT, ATTENDS CHANGED PRN. CALL LIGHT IN REACH & PT ABLE TO MAKE NEEDS KNOWN.
[2025-03-09 05:49] LABS: BASOPHILS ABSOLUTE AUTO 0.02 K/mm3 (0.00-0.23); BASOPHILS PERCENT AUTO 0 % (0-2); EOSINOPHILS ABSOLUTE AUTO 0.10 K/mm3 (0.00-0.68); EOSINOPHILS PERCENT AUTO 1 % (0-6); Hematocrit 21.4 % (33.0-51.0); Hemoglobin 6.9 g/dL (11.5-16.0); IMMATURE GRAN ABSOLUTE AUTO 0.09 K/mm3 (0.00-0.10); IMMATURE GRAN PERCENT AUTO 1 % (0-1); LYMPHOCYTES ABSOLUTE AUTO 1.52 K/mm3 (0.84-5.20); LYMPHOCYTES PERCENT AUTO 15 % (21-46); MONOCYTES ABSOLUTE AUTO 0.70 K/mm3 (0.16-1.47); MONOCYTES PERCENT AUTO 7 % (4-13); Mean Corpuscular HGB Conc 32.2 g/dL (31.5-36.5); Mean Corpuscular Volume 100 fL (80-100); NEUTROPHILS ABSOLUTE AUTO 7.71 K/mm3 (1.96-9.15); NEUTROPHILS PERCENT AUTO 76 % (41-73); NRBC ABSOLUTE 0.00 K/mm3 (0.00-0.02); NRBC Auto 0.0 /100 WBC (0.0-0.2); Platelet Count 221 K/mm3 (150-400); RDW Coefficient Variation 17.2 % (11.7-14.2); RDW Standard Deviation 61.5 fL (35.1-46.3)
[2025-03-09 06:13] LABS: Anion Gap 9.0 mmol/L (3-11); Blood Urea Nitrogen 54.0 mg/dL (8-24); CO2, Blood 18.0 mmol/L (21-32); Calcium, Blood 8.7 mg/dL (8.5-10.1); Chloride, Blood 112.0 mmol/L (98-108); Creatinine, Blood 2.76 mg/dL (0.40-1.00); Glucose, Blood 96.0 mg/dL (70-99); Potassium, Blood 4.0 mmol/L (3.5-5.5); Sodium, Blood 135.0 mmol/L (136-145)
--- NOTE | 2025-03-09 06:38 | NUR ---
PROVIDER COMMUNICATION CALL PLACED FOR HEMOGLOBIN OF 6.9, RECIEVED ORDER FOR 1U PRBC.
[2025-03-09] MEDS ORDERED: NS 500 ML IV SCH (06:40)
--- NOTE | 2025-03-09 10:09 | NUR ---
THIS NURSE IS ASSUMING CARE OF PATIENT. REPORT RECEIVED FROM CAYETANO NARVAEZ. PATIENT IS LAYING IN BED APPEARING ASLEEP WITH EVEN/EQUAL RESPIRATIONS AND CALL LIGHT IN REACH. PATIENT CURRENTLY HAS NO APPARENT S/S OF DISTRESS OR PAIN AT THIS TIME.
--- NOTE | 2025-03-09 15:00 | NUR ---
PRBC 1 UNIT PRBC STARTED AT APPROXIMATELY 1130 AND ENDED AT APPROXIMATELY 1430. PT TOLERATED WELL. BP IMPROVING.
[2025-03-09 16:22] LABS: pH Blood Venous 7.32 (7.34-7.37)
[2025-03-09 16:27] LABS: BASOPHILS ABSOLUTE AUTO 0.03 K/mm3 (0.00-0.23); BASOPHILS PERCENT AUTO 0 % (0-2); EOSINOPHILS ABSOLUTE AUTO 0.10 K/mm3 (0.00-0.68); EOSINOPHILS PERCENT AUTO 1 % (0-6); Hematocrit 27.0 % (33.0-51.0); Hemoglobin 8.8 g/dL (11.5-16.0); IMMATURE GRAN ABSOLUTE AUTO 0.15 K/mm3 (0.00-0.10); IMMATURE GRAN PERCENT AUTO 1 % (0-1); LYMPHOCYTES ABSOLUTE AUTO 1.32 K/mm3 (0.84-5.20); LYMPHOCYTES PERCENT AUTO 11 % (21-46); MONOCYTES ABSOLUTE AUTO 0.95 K/mm3 (0.16-1.47); MONOCYTES PERCENT AUTO 8 % (4-13); Mean Corpuscular HGB Conc 32.6 g/dL (31.5-36.5); Mean Corpuscular Volume 94 fL (80-100); NEUTROPHILS ABSOLUTE AUTO 9.87 K/mm3 (1.96-9.15); NEUTROPHILS PERCENT AUTO 80 % (41-73); NRBC ABSOLUTE 0.00 K/mm3 (0.00-0.02); NRBC Auto 0.0 /100 WBC (0.0-0.2); Platelet Count 208 K/mm3 (150-400); RDW Coefficient Variation 18.6 % (11.7-14.2); RDW Standard Deviation 63.3 fL (35.1-46.3)
[2025-03-09 16:41] LABS: Magnesium, Blood 2.0 mg/dL (1.6-2.4); Phosphorus, Blood 2.5 mg/dL (2.5-4.9)
--- NOTE | 2025-03-09 17:28 | NUR ---
Keith GORDON DRESSING CHANGED.
--- NOTE | 2025-03-09 17:58 | NUR ---
DR. ROBERT NOTIFIED OF INCREASED WBCs. CT RESULTS REVIEWED OVER THE PHONE. THIS RN REQUESTED THAT A DOCTOR REACH OUT TO PT'S DAUGHTER TOMORROW FOR AN UPDATE. PER DR. ROBERT HE WILL ORDER A CHEST XRAY. PT HAS AN INCENTIVE SPIROMETER AT THE BEDSIDE AND HAS BEEN USING IT T/O THE DAY.
--- NOTE | 2025-03-09 18:09 | NUR ---
SHIFT SUMMARY PT IS POD#3 FROM L HIP PINNING. PT HAS BEEN FLAT/WITHDRAWN T/O THE DAY, FAMILY STATES SHE IS LESS CONVERSIVE THAN BASELINE. PAIN MANAGED WITH TYLENOL. PT HAD 1 UNIT PRBC TODAY AND TOLERATED WELL. WBC COUNT IS INCREASED THIS EVENING, DR. ROBERT NOTIFIED. PT HAD A LOW BP TODAY, SHE HAD A 500ML BOLUS. PT USES CALL LIGHT APPROPRIATELY. FAMILY VISITED THIS EVENING.
--- NOTE | 2025-03-09 20:00 | NUR ---
ASSUMED CARE OF PT. REPORT RECEIVED AT BEDSIDE. PT PRESENTS IN BED - SLEEPING AT THIS TIME. IN NO APPARENT DISTRESS. NO S/S DISTRESS OR PAIN. WILL REVIEW CHART AND PLAN OF CARE FOR THIS PT.
--- NOTE | 2025-03-09 22:08 | NUR ---
THIS NURSE IS ASSUMING CARE OF PATIENT. REPORT RECEIVED FROM CAYETANO NARVAEZ. PATIENT IS LAYING IN BED APPEARING ASLEEP WITH EVEN/EQUAL RESPIRATIONS AND CALL LIGHT WITHIN REACH. PATIENT CURRENTLY HAS NO APPARENT S/S OF DISTRESS OR PAIN AT THIS TIME.
--- NOTE | 2025-03-10 04:20 | NUR ---
SHIFT SUMMARY: POD 4 LEFT HIP PINNING PATIENT IS A&OX4. SHE IS PLEASENT AND COOPERATIVE WITH CARE. HER LEFT HIP HAS A SMALL AQUACEL DRESSING AND IS C/D/I. PATIENT REPORTS PEAK PAIN WITH INCREASED MOVEMENT OF THE LEFT HIP, BUT WHILE AT REST THE PAIN GOES AWAY AND REFUSES PAIN MEDICATIONS. PATIENT IS ABLE TO WIGGLE ALL FINGERS AND TOES WHEN ASKED. SHE DENIES NUMBNESS OR TINGLING THROUGHOUT EXTREMITIES. PATIENT HAS BEEN INCONTINENT OF URINE WITH LARGE AMOUNTS WITH ATTENDS CHANGED NEEDED. HOWEVER, THIS NURSE READ THE IMPRESSION RESULTS OF HER ABD CT FROM YESTERDAY WHICH STATED "BLADDER DISTENTION CORRESPONDING WITH CHRONIC URINARY RETENTION." THIS NURSE THEN PROCEEDED TO BLADDER SCAN THE PATIENT AROUND 0100 THIS MORNING WITH 546ML BLADDER SCAN VOLUME. PATIENT WAS THEN STRAIGHT CATHED PER PROTOCOL SHORTLY AFTER THE BLADDER SCAN, IN WHICH 750ML OF GREEN/AIKEN URINE WITH LARGE SEDIMENT WITH A STRONG ODOROUS SMELL OF URINE OUTPUT. DR. RUANO WAS NOTIFIED, IN WHICH HE SAID "PATIENTS NEXT BLADDER SCAN SHOULD BE 4 HOURS AFTER THE MOST RECENT ONE, AND IF THERE IS >300ML IN THE BLADDER, CALL THE MD WHO IS ON AND POSSIBLY HAVE A QUEZADA PLACED TO HAVE BLADDER IRRIGATION ORDERED." PATIENT WAS LAST BLADDER SCANNED AT 0400 WITH 235ML VOLUME. NEXT BLADDER SCAN IS TO BE DONE AROUND [address] ARROYO REQUEST. LR RUNNING AT 100ML/HR PER EMAR. PATIENT CALLS APPROPRIATELY AND IS ABLE TO MAKE HER NEEDS KNOWN.
[2025-03-10 04:30] VITALS: BP 138/77
[2025-03-10 05:40] LABS: BASOPHILS ABSOLUTE AUTO 0.03 K/mm3 (0.00-0.23); BASOPHILS PERCENT AUTO 0 % (0-2); EOSINOPHILS ABSOLUTE AUTO 0.10 K/mm3 (0.00-0.68); EOSINOPHILS PERCENT AUTO 1 % (0-6); Hematocrit 24.1 % (33.0-51.0); Hemoglobin 7.9 g/dL (11.5-16.0); IMMATURE GRAN ABSOLUTE AUTO 0.25 K/mm3 (0.00-0.10); IMMATURE GRAN PERCENT AUTO 2 % (0-1); LYMPHOCYTES ABSOLUTE AUTO 1.79 K/mm3 (0.84-5.20); LYMPHOCYTES PERCENT AUTO 14 % (21-46); MONOCYTES ABSOLUTE AUTO 1.10 K/mm3 (0.16-1.47); MONOCYTES PERCENT AUTO 9 % (4-13); Mean Corpuscular HGB Conc 32.8 g/dL (31.5-36.5); Mean Corpuscular Volume 93 fL (80-100); NEUTROPHILS ABSOLUTE AUTO 9.49 K/mm3 (1.96-9.15); NEUTROPHILS PERCENT AUTO 74 % (41-73); NRBC ABSOLUTE 0.00 K/mm3 (0.00-0.02); NRBC Auto 0.0 /100 WBC (0.0-0.2); Platelet Count 222 K/mm3 (150-400); RDW Coefficient Variation 19.1 % (11.7-14.2); RDW Standard Deviation 64.6 fL (35.1-46.3)
[2025-03-10 05:56] LABS: Anion Gap 9.0 mmol/L (3-11); Blood Urea Nitrogen 53.0 mg/dL (8-24); CO2, Blood 19.0 mmol/L (21-32); Calcium, Blood 8.6 mg/dL (8.5-10.1); Chloride, Blood 109.0 mmol/L (98-108); Creatinine, Blood 2.89 mg/dL (0.40-1.00); Glucose, Blood 85.0 mg/dL (70-99); Potassium, Blood 3.8 mmol/L (3.5-5.5); Sodium, Blood 133.0 mmol/L (136-145)
[2025-03-10 07:17] VITALS: BP 144/57
[2025-03-10 12:12] LABS: Source, Urine Foley catheter
[2025-03-10 12:44] LABS: Bilirubin, Urine Neg (Neg); Glucose Qualitative, Urine Neg (Neg); Ketones, Urine Neg (Neg); Leukocyte Esterase, Urine 3+ (Neg); Protein, Urine 2+ (Neg); Specific Gravity, Urine 1.005 (1.003-1.022); Urobilinogen, Urine NORM (Normal)
[2025-03-10 12:58] LABS: Color, Urine Pale Yellow (P-Yellow)
[2025-03-10 16:10] VITALS: BP 105/66
--- NOTE | 2025-03-10 19:18 | NUR ---
SHIFT SUMMARY RESUMED CARE FOR CATHY APPRIMATELY AT 1400. PT WAS SLEEPING AT THE TIME. REFUSED REPOSITIONING ONCE WITH ME. PRN OXY GIVEN THIS EVEING FOR PAIN 10/10. WHEN RE-ASSESSING DURING SHIFT CHANGE PT WAS SLEEPING BUT REPORTS PAIN 9/10 AFTER WAKING UP. IV ANTIBIOTICS ADMINISTERED SCHEDULED. PT FLOATED BILAT HIPS AND HEELS OFF BED THIS EVENING. AQUACEL DRESSING TO LEFT HIP C/D/I.
[2025-03-10 19:25] VITALS: BP 147/59
[2025-03-10] MEDS ORDERED: Sod Ferric Gluc Complx/Sucrose 125 MG in NS 100 ML IV SCH (21:00)
[2025-03-10] MEDS ORDERED: Heparin Sodium,Porcine 5,000 UNIT/0.5 ML SDV SC SCH (21:00)
[2025-03-11 01:42] VITALS: BP 141/68
--- NOTE | 2025-03-11 01:45 | NUR ---
TRANSFER NOTE PT TRANSFERRED TO MEDICAL FLOOR RM #[id number]. THIS NURSE AND PI/SENIOR RESEARCH ASSOCIATE ACCOMPANIED PT DURING TRANSFER. ALL PT BELONGINGS TRANSFERRED WITH PT. PT TOLERATED TRANSFER WELL. REPORT GIVEN TO RECEIVING NURSE.
--- NOTE | 2025-03-11 01:49 | NUR ---
TRANSFER NOTE: PT AOX4, ORIENTED TO ROOM AND CALL LIGHT. PLEASANT AND COOPERATIVE IN CARE. PT IN BED RESTING, BED IN LOWEST POSITION, CALL LIGHT IN REACH. CONTINUING CARE.
[2025-03-11 05:11] LABS: BASOPHILS ABSOLUTE AUTO 0.02 K/mm3 (0.00-0.23); BASOPHILS PERCENT AUTO 0 % (0-2); EOSINOPHILS ABSOLUTE AUTO 0.13 K/mm3 (0.00-0.68); EOSINOPHILS PERCENT AUTO 1 % (0-6); Hematocrit 22.3 % (33.0-51.0); Hemoglobin 7.3 g/dL (11.5-16.0); IMMATURE GRAN ABSOLUTE AUTO 0.40 K/mm3 (0.00-0.10); IMMATURE GRAN PERCENT AUTO 4 % (0-1); LYMPHOCYTES ABSOLUTE AUTO 1.55 K/mm3 (0.84-5.20); LYMPHOCYTES PERCENT AUTO 16 % (21-46); MONOCYTES ABSOLUTE AUTO 1.01 K/mm3 (0.16-1.47); MONOCYTES PERCENT AUTO 10 % (4-13); Mean Corpuscular HGB Conc 32.7 g/dL (31.5-36.5); Mean Corpuscular Volume 94 fL (80-100); NEUTROPHILS ABSOLUTE AUTO 6.84 K/mm3 (1.96-9.15); NEUTROPHILS PERCENT AUTO 69 % (41-73); NRBC ABSOLUTE 0.00 K/mm3 (0.00-0.02); NRBC Auto 0.0 /100 WBC (0.0-0.2); Platelet Count 239 K/mm3 (150-400); RDW Coefficient Variation 18.6 % (11.7-14.2); RDW Standard Deviation 62.8 fL (35.1-46.3)
[2025-03-11 05:31] LABS: Alanine Aminotransfer (ALT/SGP 15.0 U/L (12-78); Albumin, Blood 1.4 g/dL (3.4-5.0); Albumin/Globulin Ratio 0.4 (0.8-1.8); Anion Gap 9.0 mmol/L (3-11); Aspartate Aminotrans (AST/SGOT 21.0 U/L (12-37); Bilirubin, Total 0.4 mg/dL (0.1-1.0); Blood Urea Nitrogen 53.0 mg/dL (8-24); CO2, Blood 20.0 mmol/L (21-32); Calcium, Blood 9.0 mg/dL (8.5-10.1); Chloride, Blood 108.0 mmol/L (98-108); Creatinine, Blood 3.05 mg/dL (0.40-1.00); Globulin, Blood 3.9 g/dL (2.2-4.0); Glucose, Blood 77.0 mg/dL (70-99); Magnesium, Blood 2.0 mg/dL (1.6-2.4); Phosphorus, Blood 2.4 mg/dL (2.5-4.9); Potassium, Blood 4.3 mmol/L (3.5-5.5); Sodium, Blood 133.0 mmol/L (136-145); Total Protein, Blood 5.3 g/dL (6.4-8.2)
--- NOTE | 2025-03-11 05:32 | NUR ---
SHIFT SUMMARY: PT AOX4, CALLS APPROPRIATELY AND ABLE TO MAKE NEEDS KNOWN. QUEZADA IN PLACE DRAINING TO GRAVITY. PT TOLERATING MEDICATIONS WELL, NO ACUTE OVERNIGHT EVENTS. PT IN BED RESTING, BED IN LOWEST POSITION, CALL LIGHT IN REACH CONTINUING CARE.
[2025-03-11 07:23] VITALS: BP 167/74
[2025-03-11] MEDS ORDERED: NS 500 ML IV SCH (09:30)
--- NOTE | 2025-03-11 14:51 | NUR ---
LATE ENTRY: 1220- VERBALLY CLARIFIED CONTINUOUS IVF ORDER WITH DR GARCIA- PER DR GARCIA RESTART ORDER PER EMAR- CONTINUE NS @ 125.
[2025-03-11 14:58] VITALS: BP 153/70
--- NOTE | 2025-03-11 18:02 | NUR ---
PT ALERT AND ORIENTED X4, PO OXYCODONE AND BACLOFEN FOR PAIN MANAGEMENT-PT DOES SEEM SOMEWHAT DROWSY AT TIMES. 1P FWW, GAIT BELT TRANSFER TO CHAIR- PT SAT ONCE TO CHAIR THIS SHIFT FOR ABOUT 2.5 HOURS. DECREASE APPETITE, ORAL FLUID NOT SUFFICIENT-IVF INFUSING. URINARY CATHETER PATENT YELLOW, CLOUDY/SEDIMENT NOTED. PT TEARFUL TODAY AND STATES NOT WANTING TO GO TO SNF AT DISCHARGE AND WOULD LIKE TO GO HOME. PHYSICAL THERAPIST EDUCATED PT ON NEED FOR INCREASE MOBILITY IF HOME IS PT'S GOAL OR DESIRE- CONVERSATION SEEMS TO HAVE ENCOURAGED PT TO PARTICIPATE MORE WITH STAFF. DRESSING TO HIP INTACT, BED ALARM ON, CALL LIGHT IN REACH.
[2025-03-11 19:35] VITALS: BP 150/71
--- NOTE | 2025-03-12 04:50 | NUR ---
SHIFT SUMMARY: PT AOX3-4, CONFUSED AT TIMES BUT REORIENTS EASILY. TOLERATING MEDICATIONS WELL. SOME AGITATION, BUT LIKELY DUE TO SOME CONFUSION. CALLS APPROPRIATELY AND ABLE TO MAKE NEEDS KNOWN. NO ACUTE OVERNIGHT EVENTS. PT IN BED RESTING, BED IN LOWEST POSITION, CALL LIGHT IN REACH. CONTINUING CARE.
[2025-03-12 04:59] LABS: BASOPHILS ABSOLUTE AUTO 0.01 K/mm3 (0.00-0.23); BASOPHILS PERCENT AUTO 0 % (0-2); EOSINOPHILS ABSOLUTE AUTO 0.04 K/mm3 (0.00-0.68); EOSINOPHILS PERCENT AUTO 0 % (0-6); Hematocrit 22.3 % (33.0-51.0); Hemoglobin 7.0 g/dL (11.5-16.0); IMMATURE GRAN ABSOLUTE AUTO 0.34 K/mm3 (0.00-0.10); IMMATURE GRAN PERCENT AUTO 4 % (0-1); LYMPHOCYTES ABSOLUTE AUTO 1.51 K/mm3 (0.84-5.20); LYMPHOCYTES PERCENT AUTO 16 % (21-46); MONOCYTES ABSOLUTE AUTO 1.04 K/mm3 (0.16-1.47); MONOCYTES PERCENT AUTO 11 % (4-13); Mean Corpuscular HGB Conc 31.4 g/dL (31.5-36.5); Mean Corpuscular Volume 95 fL (80-100); NEUTROPHILS ABSOLUTE AUTO 6.50 K/mm3 (1.96-9.15); NEUTROPHILS PERCENT AUTO 69 % (41-73); NRBC ABSOLUTE 0.00 K/mm3 (0.00-0.02); NRBC Auto 0.0 /100 WBC (0.0-0.2); Platelet Count 249 K/mm3 (150-400); RDW Coefficient Variation 18.3 % (11.7-14.2); RDW Standard Deviation 62.8 fL (35.1-46.3)
[2025-03-12 05:22] LABS: Alanine Aminotransfer (ALT/SGP 16.0 U/L (12-78); Albumin, Blood 1.4 g/dL (3.4-5.0); Albumin/Globulin Ratio 0.4 (0.8-1.8); Anion Gap 11.0 mmol/L (3-11); Aspartate Aminotrans (AST/SGOT 24.0 U/L (12-37); Bilirubin, Total 0.3 mg/dL (0.1-1.0); Blood Urea Nitrogen 47.0 mg/dL (8-24); CO2, Blood 19.0 mmol/L (21-32); Calcium, Blood 8.4 mg/dL (8.5-10.1); Chloride, Blood 109.0 mmol/L (98-108); Creatinine, Blood 3.21 mg/dL (0.40-1.00); Globulin, Blood 3.8 g/dL (2.2-4.0); Glucose, Blood 82.0 mg/dL (70-99); Potassium, Blood 4.4 mmol/L (3.5-5.5); Sodium, Blood 135.0 mmol/L (136-145); Total Protein, Blood 5.2 g/dL (6.4-8.2)
[2025-03-12 07:06] VITALS: BP 99/66
[2025-03-12 08:46] VITALS: BP 114/71
[2025-03-12] MEDS ORDERED: Magnesium Hydroxide Conc 10 ML UDC PO PRN (14:35)
[2025-03-12] MEDS ORDERED: Epoetin Alfa-EPBX 10,000 Unit/ML 1ML Vial SC SCH (15:00)
[2025-03-12 15:32] VITALS: BP 166/68
--- NOTE | 2025-03-12 15:55 | NUR ---
DISCUSSED CASE WITH PROVIDER. PATIENT IS STRUGGLING WITH HER DEPRESSION AND MOTIVATION. PROVIDER HAD AN IN DEPTH CONVERSATION ABOUT OPTIONS. PATIENT REPORTED THAT SHE IS GOING TO START MOVING AND PARTICIPATING. PC WILL CONTINUE TO FOLLOW AND PROVIDE SUPPORT
--- NOTE | 2025-03-12 18:27 | NUR ---
PATIENT A/OX3-4, OCCASIONAL CONFUSION. UP FOR MEALS THIS SHIFT, AND WORKED WITH OT THIS AFTERNOON. WITHDRAWN AND UPSET WITH STAFF ABOUT HAVING TO GET UP FOR MEALS, EDUCATED ABOUT REASONS WHY WE DO THAT AND PATIENT MORE AGREEABLE. MEDICATED WITH OXYCODONE X2 THIS SHIFT. LR INFUSING AT 100ML/HR. NO BM SINCE ADMISSION, DR GARCIA AWARE, BOWEL CARE SCHEDULED. STOOL SAMPLE NEEDED FOR OCCULT BLOOD. PLAN IS TO DC TO SNF WHEN STABLE.
[2025-03-12 19:28] VITALS: BP 98/62
--- NOTE | 2025-03-13 04:00 | NUR ---
SUBWAY CAR REPAIRER SUMMARY PT A&OX4, VSS. ABLE TO COMMUNICATE NEEDS APPROPRIATELY. PT HAS BEEN ASLEEP FOR THE GREATER HALF OF THE SHIFT. CHEST RISE/RESPIRATIONS NOTED. NO BM THIS SHIFT AT TIME OF NOTE. BOWEL CARE MEDS ADMIN PER EMAR. OXYCODONE ADMIN X 1 THIS SHIFT FOR L HIP PAIN W/ GOOD EFFECT. LR CONTINUING TO RUN AT 100 ML/HR PER EMAR. L HIP AQUACELL DRESSING REMAINS CDI. QUEZADA IN PLACE, DRAINING CLOUDY, YELLOW URINE TO GRAVITY. REMAINS FREE OF KINKS/OBSTRUCTIONS. BED RAILS UP X 2, BED IN LOWEST POSITION, BED WHEELS LOCKED, PERSONAL BELONGINGS AND CALL LIGHT WITHIN REACH FOR SAFETY.
[2025-03-13 04:08] VITALS: BP 104/61
[2025-03-13 05:07] LABS: BASOPHILS ABSOLUTE AUTO 0.02 K/mm3 (0.00-0.23); BASOPHILS PERCENT AUTO 0 % (0-2); EOSINOPHILS ABSOLUTE AUTO 0.08 K/mm3 (0.00-0.68); EOSINOPHILS PERCENT AUTO 1 % (0-6); Hematocrit 22.9 % (33.0-51.0); Hemoglobin 7.2 g/dL (11.5-16.0); IMMATURE GRAN ABSOLUTE AUTO 0.23 K/mm3 (0.00-0.10); IMMATURE GRAN PERCENT AUTO 3 % (0-1); LYMPHOCYTES ABSOLUTE AUTO 1.79 K/mm3 (0.84-5.20); LYMPHOCYTES PERCENT AUTO 21 % (21-46); MONOCYTES ABSOLUTE AUTO 0.87 K/mm3 (0.16-1.47); MONOCYTES PERCENT AUTO 10 % (4-13); Mean Corpuscular HGB Conc 31.4 g/dL (31.5-36.5); Mean Corpuscular Volume 94 fL (80-100); NEUTROPHILS ABSOLUTE AUTO 5.58 K/mm3 (1.96-9.15); NEUTROPHILS PERCENT AUTO 65 % (41-73); NRBC ABSOLUTE 0.00 K/mm3 (0.00-0.02); NRBC Auto 0.0 /100 WBC (0.0-0.2); Platelet Count 259 K/mm3 (150-400); RDW Coefficient Variation 17.6 % (11.7-14.2); RDW Standard Deviation 61.4 fL (35.1-46.3)
[2025-03-13 05:37] LABS: Albumin, Blood 1.6 g/dL (3.4-5.0); Anion Gap 13 mmol/L (3-11); Blood Urea Nitrogen 51 mg/dL (8-24); CO2, Blood 19 mmol/L (21-32); Calcium, Blood 9.2 mg/dL (8.5-10.1); Chloride, Blood 106 mmol/L (98-108); Creatinine, Blood 3.47 mg/dL (0.40-1.00); Glucose, Blood 73 mg/dL (70-99); Phosphorus, Blood 3.0 mg/dL (2.5-4.9); Potassium, Blood 4.6 mmol/L (3.5-5.5); Prealbumin, Blood 6.9 mg/dL (20.0-40.0); Sodium, Blood 133 mmol/L (136-145)
[2025-03-13 07:38] VITALS: BP 105/67
[2025-03-13] MEDS ORDERED: Folic Acid 1 MG TAB PO SCH (09:00)
[2025-03-13 15:09] VITALS: BP 90/60
[2025-03-13] MEDS ORDERED: Ascorbic Acid 250 MG Chew PO SCH (17:00)
--- NOTE | 2025-03-13 19:09 | NUR ---
SUMMARY DR. GARCIA ROUNDED THIS EVENING. HAD A CONVERSATION WITH PT ABOUT IT NOT BEING SAFE TO DC HOME IF SHE IS NOT WANTING TO GET UP OOB HERE IN HOSPITAL. PT UP TO CHAIR ONCE TODAY WITH PHYSICAL THERAPY. REFUSED TO GET UP TO CHAIR THIS EVENING. PT MEDICATED WITH PRN TYLENOL BID AND OXY ONCE TODAY. PT REPORTS PAIN TO LEFT HIP/BACK AND LEFT ANKLE THAT RADIATES FROM HIP WHEN SHE BEARS WEIGHT BUT ALSO WHEN SHE HAS HER FEET UP IN BED. DR. GARCIA ORDERED X-RAYS OF LEFT ANKLE/FOOT. TOLD PT SHE WOULD TRY GABAPENTIN FOR PAIN MANAGEMENT WELL. AND TOLD PT ABOUT POSSIBLY STARTING HER ON LOW DOSE PROZAC FOR HER DEPRESSION. NEPHROLOGY ROUNDED THIS EVENING AND CONTINUED IV FLUIDS FOR ANOTHER 3 MORE BAGS. 3RD BAG FROM PREVIOUS ORDER IS STILL CURRENTLY INFUSING. MILK OF MAG GIVEN TO PT THIS MORNING PT DID FEEL THE URGE TO GO BUT COULDNT WHEN SHE GOT UP TO [facility]SC. DR. GARCIA MADE AWARE AND STATED TO CONTINUE MILK OF MAG BID PRN ON TOP OF SCHEDULED COLACE UNTIL BOWEL MOVEMENT. PENDING STOOL SAMPLE STILL. PT IS CALLING APPROPRIATELY. IS NOT ACCURATELY REPORTING PAIN AND WILL WAIT UNTIL IT GETS TO WHERE SHE IS TEARFUL/FRUSTRATED. PT LABILE MOODS.
[2025-03-13 19:28] VITALS: BP 106/60
[2025-03-14 02:35] VITALS: BP 146/71
--- NOTE | 2025-03-14 04:09 | NUR ---
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 ABLE TO COMMUNICATE NEEDS APPROPRIATELY. PT HAS BEEN ASLEEP FOR MOST OF THE SHIFT. CHEST RISE/RESPIRATIONS NOTED. PT CONTINUES TO HAVE NO BM THIS SHIFT AT TIME OF NOTE. MILK OF MAGNESIA GIVEN PRN BID PER EMAR. OXYCODONE ADMIN X 1 FOR HIP PAIN W/ GOOD EFFECT. QUEZADA REMAINS IN PLACE, DRAINING, CLOUDY, YELLOW URINE TO GRAVITY. FREE OF KINKS/OBSTRUCTIONS. AQUACELL DRESSING ON L HIP CONTINUES TO BE CDI. LR CONTINUING TO RUN AT 100 ML/HR PER EMAR. BED RAILS UP X 2, BED IN LOWEST POSITION, BED WHEELS LOCKED, PERSONAL BELONGINGS AND CALL LIGHT WITHIN REACH FOR SAFETY.
[2025-03-14 05:13] LABS: Albumin, Blood 1.7 g/dL (3.4-5.0); Anion Gap 10 mmol/L (3-11); Blood Urea Nitrogen 50 mg/dL (8-24); CO2, Blood 23 mmol/L (21-32); Calcium, Blood 9.4 mg/dL (8.5-10.1); Chloride, Blood 107 mmol/L (98-108); Creatinine, Blood 3.43 mg/dL (0.40-1.00); Glucose, Blood 71 mg/dL (70-99); Phosphorus, Blood 2.5 mg/dL (2.5-4.9); Potassium, Blood 5.1 mmol/L (3.5-5.5); Sodium, Blood 135 mmol/L (136-145)
[2025-03-14 07:31] VITALS: BP 136/68
[2025-03-14] MEDS ORDERED: Glycerin Adult Supp 1 EA PR PRN (10:25)
[2025-03-14 10:58] LABS: BASOPHILS ABSOLUTE AUTO 0.02 K/mm3 (0.00-0.23); BASOPHILS PERCENT AUTO 0 % (0-2); EOSINOPHILS ABSOLUTE AUTO 0.08 K/mm3 (0.00-0.68); EOSINOPHILS PERCENT AUTO 1 % (0-6); Hematocrit 26.1 % (33.0-51.0); Hemoglobin 8.1 g/dL (11.5-16.0); IMMATURE GRAN ABSOLUTE AUTO 0.17 K/mm3 (0.00-0.10); IMMATURE GRAN PERCENT AUTO 2 % (0-1); LYMPHOCYTES ABSOLUTE AUTO 1.91 K/mm3 (0.84-5.20); LYMPHOCYTES PERCENT AUTO 21 % (21-46); MONOCYTES ABSOLUTE AUTO 0.75 K/mm3 (0.16-1.47); MONOCYTES PERCENT AUTO 8 % (4-13); Mean Corpuscular HGB Conc 31.0 g/dL (31.5-36.5); NEUTROPHILS ABSOLUTE AUTO 6.26 K/mm3 (1.96-9.15); NEUTROPHILS PERCENT AUTO 68 % (41-73); NRBC ABSOLUTE 0.00 K/mm3 (0.00-0.02); NRBC Auto 0.0 /100 WBC (0.0-0.2); Platelet Count 292 K/mm3 (150-400); RDW Coefficient Variation 18.1 % (11.7-14.2); RDW Standard Deviation 64.6 fL (35.1-46.3)
[2025-03-14 11:00] LABS: Mean Corpuscular Volume 99 fL (80-100)
--- NOTE | 2025-03-14 17:08 | NUR ---
NOTE PATIENT UP IN CHAIR, WENT TO TRANSFER PATIENT BACK TO BED, SHE WAS HOLDING HER IV IN HER HAD AND SAID IT FELL OUT. PATIENT ASKING WHERE HER CAT IT. REMINDED PATIENT SHE IS IN THE HOSPITAL. PATIENT UPSET AND TEARFUL. SAT WITH PATIENT AND COMFORTED HER.
--- NOTE | 2025-03-14 17:16 | NUR ---
ROUNDED ON PATIENT WITH DR. GARCIA. DISCUSSION ABOUT DIRECTION OF CARE. PATIENT IS REPORTING AT THIS TIME THAT SHE WOULD LIKE TO GO HOME AND WOULD LIKE TO DO PT.
[2025-03-14 17:19] VITALS: BP 99/71
[2025-03-14 19:57] VITALS: BP 91/60
[2025-03-15 04:23] VITALS: BP 149/87
[2025-03-15 05:03] LABS: BASOPHILS ABSOLUTE AUTO 0.02 K/mm3 (0.00-0.23); BASOPHILS PERCENT AUTO 0 % (0-2); EOSINOPHILS ABSOLUTE AUTO 0.10 K/mm3 (0.00-0.68); EOSINOPHILS PERCENT AUTO 1 % (0-6); Hematocrit 22.9 % (33.0-51.0); Hemoglobin 7.2 g/dL (11.5-16.0); IMMATURE GRAN ABSOLUTE AUTO 0.14 K/mm3 (0.00-0.10); IMMATURE GRAN PERCENT AUTO 2 % (0-1); LYMPHOCYTES ABSOLUTE AUTO 2.26 K/mm3 (0.84-5.20); LYMPHOCYTES PERCENT AUTO 25 % (21-46); MONOCYTES ABSOLUTE AUTO 0.81 K/mm3 (0.16-1.47); MONOCYTES PERCENT AUTO 9 % (4-13); Mean Corpuscular HGB Conc 31.4 g/dL (31.5-36.5); Mean Corpuscular Volume 97 fL (80-100); NEUTROPHILS ABSOLUTE AUTO 5.57 K/mm3 (1.96-9.15); NEUTROPHILS PERCENT AUTO 63 % (41-73); NRBC ABSOLUTE 0.00 K/mm3 (0.00-0.02); NRBC Auto 0.0 /100 WBC (0.0-0.2); Platelet Count 292 K/mm3 (150-400); RDW Coefficient Variation 18.0 % (11.7-14.2); RDW Standard Deviation 62.6 fL (35.1-46.3)
[2025-03-15 05:25] LABS: Albumin, Blood 1.8 g/dL (3.4-5.0); Anion Gap 9 mmol/L (3-11); Blood Urea Nitrogen 50 mg/dL (8-24); CO2, Blood 24 mmol/L (21-32); Calcium, Blood 9.0 mg/dL (8.5-10.1); Chloride, Blood 107 mmol/L (98-108); Creatinine, Blood 3.59 mg/dL (0.40-1.00); Glucose, Blood 77 mg/dL (70-99); Phosphorus, Blood 2.6 mg/dL (2.5-4.9); Potassium, Blood 4.9 mmol/L (3.5-5.5); Sodium, Blood 135 mmol/L (136-145)
[2025-03-15 07:26] VITALS: BP 160/57
--- NOTE | 2025-03-15 07:52 | NUR ---
SHIFT SUMMAY PATIENT SLEPT T/O SHIFT. A&OX1-3, BUT HAD NO HALLUCINATIONS BUT DID HAVE INAPPRORIATE ANSWERS TO A FEW QUESTIONS. CALL LIGHT WITHIN REACH, BED AT LOWEST LEVEL, BED ALARM ON. HAD A SMALL LOOSE BM.
[2025-03-15 16:02] VITALS: BP 128/68
--- NOTE | 2025-03-15 16:47 | NUR ---
SHIFT SUMMARY: PATIENT IS A&OX1-2; CONFUSED. NOT IMPULSIVE, DIFFICULT TO MOTIVATE TO BE MOBILE. SHE HAS BEEN INCONTINENT WITH LOOSE STOOLS; HAS CHRONIC QUEZADA CATHETER. SHE IS IN BED, RESTING, RESPIRATIONS EVEN AND UNLABORED, CALL LIGHT WITHIN REACH, BED ALARM SET, NO SIGNS OR SYMPTOMS OF DISTRESS, PLAN OF CARE ONGOING.
[2025-03-15 19:46] VITALS: BP 136/63
[2025-03-16 03:43] VITALS: BP 141/85
--- NOTE | 2025-03-16 04:43 | NUR ---
SHIFT SUMMARY PATIENT SEEMED TO ANSWER QUESTIONS MORE APPROPRIATELY TODAY, HOWEVER A&O STATUS WAXS AND WANES. PATIENT STILL HAVING LOOSE STOOL. CALL LIGHT WITHIN REACH, ABLE TO MAKE NEEDS KNOWN, BED AT LOWEST LEVEL, BED ALARM IS ON, BED RAILS UPX3, QUEZADA DRAINING TO GRAVITY. NO DISTRESS NOTED. REDNESS NOTED ON COCCYX, BLANCHABLE.
[2025-03-16 05:34] LABS: BASOPHILS ABSOLUTE AUTO 0.04 K/mm3 (0.00-0.23); BASOPHILS PERCENT AUTO 1 % (0-2); EOSINOPHILS ABSOLUTE AUTO 0.10 K/mm3 (0.00-0.68); EOSINOPHILS PERCENT AUTO 1 % (0-6); Hematocrit 26.9 % (33.0-51.0); Hemoglobin 8.3 g/dL (11.5-16.0); IMMATURE GRAN ABSOLUTE AUTO 0.12 K/mm3 (0.00-0.10); IMMATURE GRAN PERCENT AUTO 2 % (0-1); LYMPHOCYTES ABSOLUTE AUTO 2.19 K/mm3 (0.84-5.20); LYMPHOCYTES PERCENT AUTO 29 % (21-46); MONOCYTES ABSOLUTE AUTO 0.67 K/mm3 (0.16-1.47); MONOCYTES PERCENT AUTO 9 % (4-13); Mean Corpuscular HGB Conc 30.9 g/dL (31.5-36.5); Mean Corpuscular Volume 98 fL (80-100); NEUTROPHILS ABSOLUTE AUTO 4.51 K/mm3 (1.96-9.15); NEUTROPHILS PERCENT AUTO 59 % (41-73); NRBC ABSOLUTE 0.00 K/mm3 (0.00-0.02); NRBC Auto 0.0 /100 WBC (0.0-0.2); Platelet Count 324 K/mm3 (150-400); RDW Coefficient Variation 18.2 % (11.7-14.2); RDW Standard Deviation 63.7 fL (35.1-46.3)
[2025-03-16 06:49] LABS: Albumin, Blood 1.8 g/dL (3.4-5.0); Anion Gap 9 mmol/L (3-11); Blood Urea Nitrogen 43 mg/dL (8-24); CO2, Blood 22 mmol/L (21-32); Calcium, Blood 9.0 mg/dL (8.5-10.1); Chloride, Blood 107 mmol/L (98-108); Creatinine, Blood 3.21 mg/dL (0.40-1.00); Glucose, Blood 82 mg/dL (70-99); Phosphorus, Blood 3.4 mg/dL (2.5-4.9); Potassium, Blood 4.7 mmol/L (3.5-5.5); Sodium, Blood 133 mmol/L (136-145)
[2025-03-16 07:11] VITALS: BP 134/67
[2025-03-16] MEDS ORDERED: Ergocalciferol 50000 Intn'l Units PO SCH (09:00)
[2025-03-16 15:28] LABS: Anion Gap 13.0 mmol/L (3-11); Blood Urea Nitrogen 52.0 mg/dL (8-24); CO2, Blood 22.0 mmol/L (21-32); Calcium, Blood 9.0 mg/dL (8.5-10.1); Chloride, Blood 105.0 mmol/L (98-108); Creatinine, Blood 4.16 mg/dL (0.40-1.00); Glucose, Blood 133.0 mg/dL (70-99); Potassium, Blood 4.7 mmol/L (3.5-5.5); Sodium, Blood 135.0 mmol/L (136-145)
[2025-03-16 15:39] VITALS: BP 140/61
--- NOTE | 2025-03-16 16:06 | NUR ---
ASSUMED CARE PT IS A/O X 3-4 VSS, HAS NO C/O PAIN, PT ABLE TO MOVE SELF IN BED BUT IS NOT MOTIVATED TO GET UP AND SIT IN A CHAIR. CHRONIC QUEZADA CATH IN PLACE, URINE CLOUDY. CALL LIGHT WITHIN REACH MAKES NEEDS KNOWN.
--- NOTE | 2025-03-16 19:10 | NUR ---
NO CHANGE PT DID WELL TODAY REFUSED TO GET OUT OF BED, BUT HAS BEEN ABLE TO MAKE NEEDS KNOWN. CASE MANAGEMENT TO WORK WITH PT AND SET UP CARE FOR AFTER HOSPITAL.
[2025-03-16 20:00] VITALS: BP 134/63
[2025-03-17 04:47] VITALS: BP 147/62
[2025-03-17 04:49] LABS: BASOPHILS ABSOLUTE AUTO 0.03 K/mm3 (0.00-0.23); BASOPHILS PERCENT AUTO 0 % (0-2); EOSINOPHILS ABSOLUTE AUTO 0.09 K/mm3 (0.00-0.68); EOSINOPHILS PERCENT AUTO 1 % (0-6); Hematocrit 25.0 % (33.0-51.0); Hemoglobin 7.8 g/dL (11.5-16.0); IMMATURE GRAN ABSOLUTE AUTO 0.13 K/mm3 (0.00-0.10); IMMATURE GRAN PERCENT AUTO 1 % (0-1); LYMPHOCYTES ABSOLUTE AUTO 2.54 K/mm3 (0.84-5.20); LYMPHOCYTES PERCENT AUTO 27 % (21-46); MONOCYTES ABSOLUTE AUTO 0.93 K/mm3 (0.16-1.47); MONOCYTES PERCENT AUTO 10 % (4-13); Mean Corpuscular HGB Conc 31.2 g/dL (31.5-36.5); Mean Corpuscular Volume 98 fL (80-100); NEUTROPHILS ABSOLUTE AUTO 5.54 K/mm3 (1.96-9.15); NEUTROPHILS PERCENT AUTO 60 % (41-73); NRBC ABSOLUTE 0.00 K/mm3 (0.00-0.02); NRBC Auto 0.0 /100 WBC (0.0-0.2); Platelet Count 348 K/mm3 (150-400); RDW Coefficient Variation 18.2 % (11.7-14.2); RDW Standard Deviation 63.7 fL (35.1-46.3)
[2025-03-17 05:03] LABS: Albumin, Blood 2.0 g/dL (3.4-5.0); Anion Gap 11 mmol/L (3-11); Blood Urea Nitrogen 55 mg/dL (8-24); CO2, Blood 23 mmol/L (21-32); Calcium, Blood 9.2 mg/dL (8.5-10.1); Chloride, Blood 105 mmol/L (98-108); Creatinine, Blood 4.04 mg/dL (0.40-1.00); Glucose, Blood 94 mg/dL (70-99); Phosphorus, Blood 3.5 mg/dL (2.5-4.9); Potassium, Blood 5.0 mmol/L (3.5-5.5); Sodium, Blood 134 mmol/L (136-145)
--- NOTE | 2025-03-17 05:28 | NUR ---
SHIFT SUMMARY PATIENT SLEPT T/O SHIFT, A&OX2-3, ABLE TO MAKE NEEDS KNOWN. MOTIVATION TO DO IS VERY LITTLE. BED AT LOWEST LEVEL, ABLE TO MAKE NEEDS KNOW, CALL LIGHT WITHIN REACH, BED ALARM IS ON DAYSHIFT TO ATTEMPT TO REACH OUT TO CASE MANAGEMENT TO CONTACT DAUGHTER ABOUT FUTURE DECISIONS. QUEZADA DRAINING TO GRAVITY
[2025-03-17 07:30] VITALS: BP 137/58
[2025-03-17 10:25] VITALS: BP 136/94
--- NOTE | 2025-03-17 11:15 | NUR ---
NOTE CALLED AND SPOKE WITH OFFICE STAFF AT DR GARCIA. PASSES THE MESSAGE ALONE THAT THE PATIENT TODAY HAS LEFT SIDED WEAKNESS, LEFT SIDED FACE DROOP, AND ADDITIONAL CONFUSION. WHEN WOKEN THE PATIENT STATED "I HAD ANOTHER STROKE DIDNT I". PATIENT RECALLS A PAST STROKE BUT IS UNSURE OF THE YEAR. PATIENT EXPRESSES NOT FEELING RIGHT AND STATES HER LEFT SIDE FEELS WEAK. PATIENT IS LETHARGIC, AND APPEARS TO BE SLEEPING WITH EYES OPEN. AWAKENS TO VERBAL STIMULI, DENIES MUCH PAIN BUT ALSO IS TEARFUL. PATIENT IS ASKING FOR HER SISTER AND MOTHER, WHO HAVE PASSED ON. INFORMATION GIVEN TO OFFICE STAFF. PATIENT RESTING IN BED.
[2025-03-17 15:14] VITALS: BP 80/58
[2025-03-17 15:32] VITALS: BP 135/59
--- NOTE | 2025-03-17 17:24 | NUR ---
END OF SHIFT NOTE PATIENT RESTING IN BED. A&O3, CALL LIGHT IN REACH, BED IN LOWEST POSITION WITH BED ALARM ON. PATIENT VERY LETHARGIC TODAY, DURING ASSESSMENT, NOTICED LEFT SIDED WEAKNESS WORSENING, MILD LEFT FACIAL DROOP, AND PATIENT SEEMED MORE CONFUSED AND UNABLE TO FORM SENTENCES. DR GARCIA INFORMED AND CT SCAN ORDERED. PATIENT UP TO CHAIR FOR BREAKFAST. ATTENDS IN PLACE, CATH DRAINING TO GRAVITY, YELLOW CLOUDY URINE. SMALL BOWEL MOVEMENT ON THIS SHIFT. NO OTHER CONCERNS FOR THIS SHIFT
[2025-03-17 19:34] VITALS: BP 131/46
[2025-03-18 02:53] VITALS: BP 123/57
[2025-03-18 04:41] LABS: BASOPHILS ABSOLUTE AUTO 0.02 K/mm3 (0.00-0.23); BASOPHILS PERCENT AUTO 0 % (0-2); EOSINOPHILS ABSOLUTE AUTO 0.14 K/mm3 (0.00-0.68); EOSINOPHILS PERCENT AUTO 2 % (0-6); Hematocrit 23.7 % (33.0-51.0); Hemoglobin 7.2 g/dL (11.5-16.0); IMMATURE GRAN ABSOLUTE AUTO 0.13 K/mm3 (0.00-0.10); IMMATURE GRAN PERCENT AUTO 2 % (0-1); LYMPHOCYTES ABSOLUTE AUTO 2.41 K/mm3 (0.84-5.20); LYMPHOCYTES PERCENT AUTO 31 % (21-46); MONOCYTES ABSOLUTE AUTO 0.78 K/mm3 (0.16-1.47); MONOCYTES PERCENT AUTO 10 % (4-13); Mean Corpuscular HGB Conc 30.4 g/dL (31.5-36.5); Mean Corpuscular Volume 98 fL (80-100); NEUTROPHILS ABSOLUTE AUTO 4.41 K/mm3 (1.96-9.15); NEUTROPHILS PERCENT AUTO 56 % (41-73); NRBC ABSOLUTE 0.00 K/mm3 (0.00-0.02); NRBC Auto 0.0 /100 WBC (0.0-0.2); Platelet Count 329 K/mm3 (150-400); RDW Coefficient Variation 18.2 % (11.7-14.2); RDW Standard Deviation 64.2 fL (35.1-46.3)
--- NOTE | 2025-03-18 04:42 | NUR ---
SHIFT SUMMARY; PATIENT SLEEPS IN LONG INTERVALS. REPOSITIONED Q2 HR. 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 ABLE TO SWALLOW MULTIPLE PILLS WITH WATER, AND OPENED HER WATER BOTTLE WITH 2 HANDS. STOPPED IV FLUIDS D/T FREQUENT BEEOING. CHRMariah QUEZADA.
[2025-03-18 05:02] LABS: Albumin, Blood 1.9 g/dL (3.4-5.0); Anion Gap 12 mmol/L (3-11); Blood Urea Nitrogen 58 mg/dL (8-24); CO2, Blood 21 mmol/L (21-32); Calcium, Blood 9.0 mg/dL (8.5-10.1); Chloride, Blood 107 mmol/L (98-108); Creatinine, Blood 4.16 mg/dL (0.40-1.00); Glucose, Blood 83 mg/dL (70-99); Phosphorus, Blood 4.3 mg/dL (2.5-4.9); Potassium, Blood 4.9 mmol/L (3.5-5.5); Sodium, Blood 135 mmol/L (136-145)
[2025-03-18 07:22] VITALS: BP 133/52
--- NOTE | 2025-03-18 14:02 | NUR ---
1400- TELEPHONE VERBAL FROM MD FARRAR TO DC CONTINUOUS FLUIDS.
[2025-03-18 15:31] VITALS: BP 117/58
--- NOTE | 2025-03-18 15:58 | NUR ---
This 69-year-old female has a primary history of CKD 4, HTN, pulmonary nodules, cervical cancer, ruelas esophagus, renal stenosis, severe abdominal aortic stenosis, and peripheral artery disease who presented to the ED for a ground level fall after tripping. She was found to have a left hip fracture and was admitted for management. She has elected to discharge home with hospice. She will likely discharge tomorrow with her daughter Memo, then be admitted to hospice on Monday, 03/21. Pt is also currently struggling with physical deconditioning, malnutrition, and depression.
--- NOTE | 2025-03-18 18:29 | NUR ---
SUMMARY- AAOX3. DISORIENTED TO DATE. FORGETFUL AND DOES OCASSIONALLY MAKE OFF TOPIC STATEMENT THAT ARE NONSENSICAL. PAIN WELL CONTROLLED WITH EMAR PAIN MEDS. ANXIETY WELL CONTROLLED WITH ATIVAN PO. PT DID NEED MULTIPLE REINFORCEMENT TALKS REGARDING GETTING OUT OF BED/CHAIR WITHOUT CALLING. PT ON RA. X1 ASSIST TO CHAIR/BED.
[2025-03-18 19:47] VITALS: BP 116/100
[2025-03-19 03:21] VITALS: BP 130/56
[2025-03-19 05:14] LABS: Albumin, Blood 1.9 g/dL (3.4-5.0); Anion Gap 9 mmol/L (3-11); Blood Urea Nitrogen 63 mg/dL (8-24); CO2, Blood 23 mmol/L (21-32); Calcium, Blood 8.9 mg/dL (8.5-10.1); Chloride, Blood 107 mmol/L (98-108); Creatinine, Blood 4.01 mg/dL (0.40-1.00); Glucose, Blood 80 mg/dL (70-99); Phosphorus, Blood 3.4 mg/dL (2.5-4.9); Potassium, Blood 4.8 mmol/L (3.5-5.5); Sodium, Blood 134 mmol/L (136-145)
--- NOTE | 2025-03-19 05:26 | NUR ---
SHIFT SUMMARY- Events: No new shift events. Pain managed with one administration per EMR. - Orientation: A/Ox2-3; confused with a flat, withdrawn affect. Safety: Fall risk; bed alarm active. Ambulation: Post-left hip fracture repair with weakness; left leg weight-bearing as tolerated. Medication: Whole with water. Toileting: Medina catheter; incontinent of stool.
[2025-03-19 06:26] LABS: Hematocrit 24.8 % (33.0-51.0); Hemoglobin 7.5 g/dL (11.5-16.0)
[2025-03-19 07:33] VITALS: BP 143/60
[2025-03-19] MEDS ORDERED: ZINC OXIDE/PETROLATUM, YELLOW 1 APPLIC/71 GM PASTE TOP PRN (13:50)
[2025-03-19 15:54] VITALS: BP 96/68
--- NOTE | 2025-03-19 17:30 | NUR ---
SUMMARY- PT AAOX3 THIS SHIFT. DISORIENTED TO DATE. X1 ASSIST TO CHAIR. PAIN WELL CONTROLLED WITH EMAR PAIN MEDS. PT ON RA. NO ACUTE EVENTS THIS SHIFT. THIS RN EMPHASIZED IMPORTANCE OF DRINKING FLUIDS FOR KIDNEY FUNCTION.
--- NOTE | 2025-03-19 19:03 | NUR ---
1300- THIS RN SPOKE WITH MD VELA ABOUT PT'S ISOLATION (CONTACT) BEING DC. KNUCKLE STRAP SEWER IS NOT AVAILABLE TO REFER TO. AND THIS RN IS UNSURE IF PT'S TWO DETECTED STOOL ORGANISMS NEED TO HAVE CONTACT PRECAUTIONS. MD VELA STATED PT CAN/SHOULD HAVE CONTACT OSOLATION ORDER SINCE IT IS UNCLEAR IF PT SHOULD HAVE CONTACT ISO ORDER OR NOT. CONTACT ISO ORDER PLACED.
[2025-03-19 19:33] VITALS: BP 90/61
[2025-03-20 02:38] VITALS: BP 153/65
[2025-03-20 05:04] LABS: Albumin, Blood 2.0 g/dL (3.4-5.0); Anion Gap 11 mmol/L (3-11); Blood Urea Nitrogen 68 mg/dL (8-24); CO2, Blood 22 mmol/L (21-32); Calcium, Blood 9.6 mg/dL (8.5-10.1); Chloride, Blood 104 mmol/L (98-108); Creatinine, Blood 3.94 mg/dL (0.40-1.00); Glucose, Blood 93 mg/dL (70-99); Phosphorus, Blood 3.5 mg/dL (2.5-4.9); Potassium, Blood 5.1 mmol/L (3.5-5.5); Sodium, Blood 132 mmol/L (136-145)
--- NOTE | 2025-03-20 05:41 | NUR ---
Shift Summary- Events: No new shift events. Discharge to hospice is anticipated during the day shift today. Orientation: A/Ox2-3; presents as confused with a flat, withdrawn affect. Safety: Fall risk; bed alarm is active. - Ambulation: Status post-left hip fracture repair with weakness; left leg is weight-bearing as tolerated. Medication: Taken whole with water. - Toileting: Medina catheter; incontinent of stool.
[2025-03-20 06:53] LABS: Hematocrit 25.9 % (33.0-51.0); Hemoglobin 8.1 g/dL (11.5-16.0); Magnesium, Blood 2.9 mg/dL (1.6-2.4)
[2025-03-20 07:40] VITALS: BP 142/59
[2025-03-20 15:32] VITALS: BP 94/65
--- NOTE | 2025-03-20 16:54 | NUR ---
NOTIFIED DR. ESCOBAR REGARDING PATIENTS ONGLING UNRESOLVED PAIN TO LEFT FOOT/ANKLE. PT CONTINUES TO REPORT 9/10 PAIN EVEN AFTER 10 MG OXY. PT HAS GOTTEN OXY TWICE TODAY AND TYLENOL TWICE TODAY WITH NOT MUCH RELIEF. THE SLIGHTEST PASSIVE ROM AND PALPATIONTO LEFT FOOT CUASES 10/10 PAIN AND PT STARTS CRYING. DR. ESCOBAR TO REVIEW WITH HER SENIOR AND GET BACK TO ME ON PLAN OF CARE FOR PAIN MANAGEMENT AND UNRESOLVED ACUTE PAIN TO LEFT ANKLE/FOOT.
[2025-03-20 20:18] VITALS: BP 119/75
[2025-03-21 03:49] VITALS: BP 143/55
[2025-03-21 05:12] LABS: Albumin, Blood 2.1 g/dL (3.4-5.0); Anion Gap 12 mmol/L (3-11); Blood Urea Nitrogen 75 mg/dL (8-24); CO2, Blood 23 mmol/L (21-32); Calcium, Blood 9.7 mg/dL (8.5-10.1); Chloride, Blood 104 mmol/L (98-108); Creatinine, Blood 4.06 mg/dL (0.40-1.00); Glucose, Blood 84 mg/dL (70-99); Phosphorus, Blood 4.5 mg/dL (2.5-4.9); Potassium, Blood 4.9 mmol/L (3.5-5.5); Sodium, Blood 134 mmol/L (136-145)
--- NOTE | 2025-03-21 05:34 | NUR ---
SHIFT SUMMARY PATIENT ADMITTED FOR HIP FX. PATIENT IN CONTACT ISOLATION COLONIZED CDIFF. PATIENT ALERT AND ORIENTED X 2-3. NO ACUTE OVERNIGHT EVENTS THIS SHIFT. PATIENT RESTING AT THIS TIME. BED RAILS UP X3. BED IN LOWEST POSITION FOR SAFETY. CALL LIGHT WITHIN REACH.
[2025-03-21 07:39] VITALS: BP 148/60
[2025-03-21] MEDS ORDERED: DULCOLAX400 MG/5 M PO (14:15)
[2025-03-21] MEDS ORDERED: MIRT15ST PO (14:16)
[2025-03-21] MEDS ORDERED: MORP20L PO (14:19)
[2025-03-21] MEDS ORDERED: SENN187 PO (14:20)
[2025-03-21] MEDS ORDERED: REMEDY SPECIAL113 GM TOP (14:24)
--- NOTE | 2025-03-21 16:46 | NUR ---
DISCHARGE NOTE PT EDUCATED ON DISCHARGE PACKET AND NEW PRESCRIPTIONS. DAUGHTER WAS EDUCATED ON DISCHARGE PACKET AND NEW PRESCRIPTIONS OVER THE PHONE. NOTIFIED HER THAT HER HARD SCRIPT FOR HER PAIN MEDICATION WILL BE IN THE FOLDER INSIDE HER BELONGINGS BAG. ALL BELONGINGS WERE GATHERED AND RETURNED. IV REMOVED. WHEELCHAIR TRANPORT PICKED UP AT 1646. GRANDDAUGHTER JORY WAS NOTIFIED OF PICKUP OVER THE PHONE I COULDNT GET AHOLD OF OTONIEL HER DAUGHTER. QUEZADA WAS IN PLACE AT [facility] TO ADMIT PT ON MONDAY. EDUCATED OTONIEL ON QUEZADA CARE DAILY OVER THE PHONE. SHE VERBAILIZED UNDERSTANDING OF MEDS AND QUEZADA CARE. PT WAS NOT INTERESTED IN EDUCATION, SHE WAS WITHDRAWN DURING DISCUSSION.
== END 2025-03-21 16:45 | disposition hospice, home (50) | DRG 480 ==
LOC: ER 16:09 → ERHOLD 16:10 → SURS 16:10 → MEDS 03-05 08:21 → SURS 03-05 08:22 → MEDS 03-11 01:54
PROVIDERS: Emergency Medicine; Family Medicine; Hospitalist; Nurse Practitioner Acute Care; Orthopaedic Surgery; Student in an Organized Health Care Education/Training Program; ADMIT Family Medicine
PROC: 30233N1 Transfusion of Nonautologous Red Blood Cells into Peripheral Vein, Percutaneous Approach (ICD-10-PCS; 2025-03-04)
PROC: 0QS704Z Reposition Left Upper Femur with Internal Fixation Device, Open Approach (ICD-10-PCS; principal; 2025-03-06 14:30)
PROC: 3E03329 Introduction of Other Anti-infective into Peripheral Vein, Percutaneous Approach (ICD-10-PCS; 2025-03-08)
PROC: 0T9B70Z Drainage of Bladder with Drainage Device, Via Natural or Artificial Opening (ICD-10-PCS; 2025-03-10)
DX: S72.092A Other fracture of head and neck of left femur, initial encounter for closed fracture (principal); E43 Unspecified severe protein-calorie malnutrition; N18.4 Chronic kidney disease, stage 4 (severe); Z68.1 Body mass index [BMI] 19.9 or less, adult; N17.9 Acute kidney failure, unspecified; N13.6 Pyonephrosis; D62 Acute posthemorrhagic anemia; I69.354 Hemiplegia and hemiparesis following cerebral infarction affecting left non-dominant side; Z66 Do not resuscitate; D63.1 Anemia in chronic kidney disease; I73.9 Peripheral vascular disease, unspecified; I12.9 Hypertensive chronic kidney disease with stage 1 through stage 4 chronic kidney disease, or unspecified chronic kidney disease; B96.5 Pseudomonas (aeruginosa) (mallei) (pseudomallei) as the cause of diseases classified elsewhere; B96.89 Other specified bacterial agents as the cause of diseases classified elsewhere; S93.602A Unspecified sprain of left foot, initial encounter; M79.7 Fibromyalgia; I70.0 Atherosclerosis of aorta; F32.A Depression, unspecified; I70.1 Atherosclerosis of renal artery; E86.0 Dehydration; R33.9 Retention of urine, unspecified; R00.0 Tachycardia, unspecified; I95.9 Hypotension, unspecified; W01.0XXA Fall on same level from slipping, tripping and stumbling without subsequent striking against object, initial encounter; I70.8 Atherosclerosis of other arteries; Z60.8 Other problems related to social environment; Z88.1 Allergy status to other antibiotic agents; Z88.8 Allergy status to other drugs, medicaments and biological substances; Z85.41 Personal history of malignant neoplasm of cervix uteri; Z98.1 Arthrodesis status; Z79.02 Long term (current) use of antithrombotics/antiplatelets; Z87.891 Personal history of nicotine dependence; Z79.891 Long term (current) use of opiate analgesic; Z87.440 Personal history of urinary (tract) infections
CPT/HCPCS: 36415; 36430; 70450; 71045; 72170; 73502; 73552; 73610; 73630; 74177; 80048; 80053; 80069; 81001; 82306; 82728; 82803; 83540; 83550; 83605; 83735; 83970; 84100; 84134; 85014; 85018; 85025; 85045; 86850; 86900; 86901; 86920; 86923; 87077; 87086; 87186; 94760; 94762; 96374; 96376; 97110; 97161; 97166; 97530; 97535; 99285-25; A9270; C1713; C1769; G0378; J1100; J1171; J1644; J1956; J2371; J2405; J2704; J2916; J3010; J3373; J7030; J7040; J7050; J7120; P9016; Q5106; Q9967